=== PATIENT | female | born 1945 | race Caucasian/White ===

== ENCOUNTER 2018-02-09 11:00 | Inpatient (IN) | payer MEDICARE ==
[2018-02-13] MEDS ORDERED: Ketorolac Tromethamine 30 MG/ML VIAL ONE (07:08)
[2018-02-13] MEDS ORDERED: Fentanyl 250 MCG/5 ML VIAL ONE (07:09)
[2018-02-13] MEDS ORDERED: cefOXitin 2 GM, Syringe 1 ML in Sterile Water 10 ML SLOW IVP SCH (07:15)
[2018-02-13] MEDS ORDERED: Midazolam HCl 2 mg/2 ml Vial ONE (07:35)
[2018-02-13] MEDS ORDERED: Fentanyl 100 MCG/2 ML VIAL ONE (07:35)
[2018-02-13] MEDS ORDERED: Dexamethasone 4 mg/ml Vial ONE (07:36)
[2018-02-13] MEDS ORDERED: Lidocaine 2% w/Epinephrine 1:200K 20 ML VIAL ONE (08:10)
[2018-02-13] MEDS ORDERED: Bupivacaine/Epinephrine 0.25% 30 ML VIAL ONE (08:10)
[2018-02-13] MEDS ORDERED: Dexmedetomidine 200 MCG/2 ML VIAL ONE (08:26)
[2018-02-13] MEDS ORDERED: Ondansetron HCl/PF 4 MG/2 ML Vial ONE ×2 (08:26→16:19)
[2018-02-13] MEDS ORDERED: SUGAMMADEX SODIUM 500 MG/5 ML VIAL ONE (09:52)
[2018-02-13] MEDS ORDERED: cefOXitin 2 GM VIAL ONE (10:14)
[2018-02-13] MEDS ORDERED: PROVENTIL INHALER 6.7 G (200 INHALATIONS) INH PRN (11:39)
[2018-02-13] MEDS ORDERED: Promethazine HCl 25 MG/ML VIAL IM PRN ×2 (11:41→12:59)
[2018-02-13] MEDS ORDERED: Ondansetron HCl/PF 4 MG/2 ML Vial IVP PRN ×2 (11:41→12:59)
[2018-02-13] MEDS ORDERED: Promethazine HCl 25 MG/ML VIAL SLOW IVP PRN (11:41)
[2018-02-13] MEDS ORDERED: Morphine 4 MG/ML VIAL SLOW IVP PRN ×2 (12:59)
[2018-02-13] MEDS ORDERED: Acetaminophen 1,000 MG in Premix Bag 1 BAG IVPB SCH (12:59)
[2018-02-13] MEDS ORDERED: Ketorolac Tromethamine 30 MG/ML VIAL IVP SCH (12:59)
[2018-02-13 13:06] VITALS: BMI 27.8
[2018-02-13] MEDS ORDERED: cefOXitin 2 GM in Sodium Chloride 0.9% 100 ML IVPB SCH (14:00)
[2018-02-13] MEDS ORDERED: Famotidine 20 MG TAB PO SCH (14:15)
[2018-02-13] MEDS: D5 1/2 NS w/20 mEq KCL 1,000 ML IV SCH ×2 (14:21→22:06)
[2018-02-13] MEDS: Famotidine 20 MG TAB PO SCH ×2 (14:22→20:40)
[2018-02-13] MEDS: Famotidine 40 MG/4 ML VIAL SLOW IVP SCH ×2 (14:22→22:06)
[2018-02-13] MEDS: Ketorolac Tromethamine 30 MG/ML VIAL IVP SCH ×2 (14:23→20:37)
[2018-02-13] MEDS: Acetaminophen 1,000 MG in Premix Bag 1 BAG IVPB SCH ×2 (14:23→20:37)
[2018-02-13] MEDS ORDERED: Bupivacaine HCl 0.5%/Epinephrine 1:200,000/PF 30 ml Vial ONE (16:00)
[2018-02-13] MEDS ORDERED: PROPOFOL 200 MG/20 ML VIAL ONE (16:19)
[2018-02-13] MEDS ORDERED: PHENYLEPHRINE-NS 100 MCG/ML 10 ML SYRINGE ONE (16:19)
[2018-02-13] MEDS ORDERED: Hydrocortisone Sod Succ/PF 100 mg/2 ml Vial ONE (16:19)
[2018-02-13] MEDS ORDERED: Lidocaine 1% PF 5 ML VIAL ONE (16:19)
[2018-02-13] MEDS: cefOXitin 2 GM, Syringe 1 ML in Sterile Water 10 ML SLOW IVP SCH (18:18)
[2018-02-13] MEDS: Albuterol Sulfate 1.25 MG/3 ML NEB INH SCH (18:54)
[2018-02-13] MEDS: Mometasone/Formoterol 120 PUFF INHALER INH SCH (19:29)
[2018-02-13] MEDS: Enoxaparin Sodium 40 MG/0.4 ML SYRINGE SC SCH (20:39)
[2018-02-13] MEDS: Montelukast Sodium 10 mg Tablet PO SCH (20:40)
[2018-02-13] MEDS: hydrALAZINE 20 MG/ML VIAL SLOW IVP PRN (23:49)
[2018-02-14] MEDS: D5 1/2 NS w/20 mEq KCL 1,000 ML IV SCH ×3 (00:35→09:23)
[2018-02-14] MEDS: Ketorolac Tromethamine 30 MG/ML VIAL IVP SCH ×4 (01:33→20:25)
[2018-02-14] MEDS: Acetaminophen 1,000 MG in Premix Bag 1 BAG IVPB SCH ×2 (01:34→08:34)
[2018-02-14] MEDS: cefOXitin 2 GM, Syringe 1 ML in Sterile Water 10 ML SLOW IVP SCH (01:34)
[2018-02-14 04:34] LABS: #Lymphocytes 0.9 thou/uL (1.20-3.40); #Monocytes 1.6 thou/uL (0.11-0.59); #Neutrophils 16.8 thou/uL (1.40-6.50); %Basophils 0.1 % (0.0-1.0); %Eosinophils 0.2 % (0.0-10.0); %Lymphocytes 4.8 % (21.0-51.0); %Monocytes 8.4 % (0.0-10.0); %Neutrophils 86.7 % (42.0-75.0); Hemoglobin 12.6 g/dL (12.0-16.0); Mean Corpuscular HGB CONC 34.6 g/dL (32.0-36.0); Mean Corpuscular Hemoglobin 32.3 pg (27.0-31.0); Mean Corpuscular Volume 93.3 fl (81.0-99.0); Mean Platelet Volume 6.4 fL (7.4-10.4); Platelet Count 366 thou/uL (130-400); RBC Distribution Width 11.3 % (11.5-14.5); Red Blood Cell (RBC) Count 3.91 mill/uL (4.20-5.40); White Blood Cell (WBC) Count 19.4 thou/uL (4.8-10.8)
[2018-02-14 04:42] LABS: Anion Gap 12 mmol/L (10-20); BUN (Urea Nitrogen) 16 mg/dL (9.8-20.1); Calc. Creatinine Clearance 35 mL/min (70-130); Calcium 8.5 mg/dL (7.8-10.44); Carbon Dioxide 20 mmol/L (23-31); Chloride 106 mmol/L (98-107); Estimated GFR-MDRD 35; Glucose 169 mg/dL (83-110); Potassium 4.1 mmol/L (3.5-5.1); Sodium 134 mmol/L (136-145)
[2018-02-14] MEDS: hydrALAZINE 20 MG/ML VIAL SLOW IVP PRN (06:08)
[2018-02-14] MEDS: Albuterol Sulfate 1.25 MG/3 ML NEB INH SCH ×2 (06:21→19:46)
[2018-02-14] MEDS: Mometasone/Formoterol 120 PUFF INHALER INH SCH ×2 (06:23→19:44)
[2018-02-14] MEDS: FLUoxetine HCl 20 MG CAP PO SCH (08:35)
[2018-02-14] MEDS: Famotidine 40 MG/4 ML VIAL SLOW IVP SCH (08:35)
[2018-02-14] MEDS: Famotidine 20 MG TAB PO SCH (08:35)
[2018-02-14] MEDS: Losartan 25 MG TAB PO SCH (08:35)
[2018-02-14] MEDS ORDERED: HYDROcodone/Acetaminophen 7.5/325 mg Tablet PO PRN ×2 (08:52)
--- NOTE | 2018-02-14 18:54 | CON ---
DATE OF CONSULTATION: 02/14/2018 HISTORY OF PRESENT ILLNESS: She is doing well. She has no complaints. She presented for rectal prolapse surgery, and I was asked to follow along with her because of her severe asthma. She has no complaints. She is for all practical purposes, steroid dependent. She denies asthma or wheezing at this time. She actually walked today. PAST MEDICAL HISTORY: Remarkable for, 1. Asthma. 2. Hypertension. 3. History of depression. 4. History of salivary gland tumor. 5. History of hysterectomy. 6. Tubal ligation. 7. History of lumbar spine surgery. 8. History of admission to the ICU in 2014 with respiratory insufficiency associated with asthma and pain. 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 It was felt that she might have meningitis with that. Surprisingly, she recovered from that. 9. History of spinal injections for pain. 10. History of hearing loss. 11. History of having one child. I took care of her son many years ago, Joaquin Hoff, who with complications of muscular dystrophy in his 30s. He actually was living in an iron lung until he was in his late mid 20s. She has a [id number] history of smoking, but she had not smoked in over 25 years. She does drink. She works at [employer] [address] near [facility]. SOCIAL HISTORY: FAMILY HISTORY: REVIEW OF SYSTEMS: 10 point system negative. She denies having perirectal significant discomfort at this time. Remainder of review of systems, 10 points , is negative. PHYSICAL EXAMINATION: GENERAL: She is in no distress. She is lying flat in bed. VITAL SIGNS: She is afebrile. Heart rate is 87, blood pressure 155/88, respiratory rate is 20. HEENT: Pupils are equal. Sclerae are anicteric. NECK: Supple. No lymphadenopathy. LUNGS: Clear. HEART: Regular rhythm. S1 and S2 are normal. ABDOMEN: Soft and nontender. EXTREMITIES: Without clubbing, cyanosis, or edema. White count is 19.4, hemoglobin 12.6, platelets 366. Sodium 134, potassium 4.1, chloride 106, bicarb 20, BUN 16, creatinine 1.46. Baseline creatinine is about 1.1. IMPRESSION: 1. Chronic persistent asthma with intermittent chronic steroid use. For all practical purposes, she is steroid dependent. She is clinically stable. 2. Status post surgical repair of rectal prolapse. 3. Mild renal dysfunction. I suspect this will improve with hydration and increased p.o. intake. I will be happy to follow with the other physicians caring for her now. Fortunately, she is stable at this time. This is a 50-minute consult, greater than 50% of the time was spent coordinating care on the unit. ZACHERY
[2018-02-14] MEDS: Montelukast Sodium 10 mg Tablet PO SCH (20:24)
[2018-02-14] MEDS: Enoxaparin Sodium 40 MG/0.4 ML SYRINGE SC SCH (20:25)
[2018-02-15] MEDS: D5 1/2 NS w/20 mEq KCL 1,000 ML IV SCH (02:57)
[2018-02-15] MEDS: Ketorolac Tromethamine 30 MG/ML VIAL IVP SCH ×4 (02:58→21:10)
--- NOTE | 2018-02-15 04:42 | OP ---
DATE OF OPERATION: 02/13/2018 PREOPERATIVE DIAGNOSIS: Rectal prolapse. POSTOPERATIVE DIAGNOSIS: Rectal prolapse with multiloculated right ovarian cyst. OPERATION PERFORMED: Hand-assisted laparoscopic sigmoid colectomy with rectopexy, right oophorectomy . SURGEON: Ky Becerra M.D. ANESTHESIA: General endotracheal. INDICATIONS: The patient is a 72-year-old white female. She has steroid dependent COPD. She has re ctal prolapse, which sticks out 8-9 cm. It is easily reducible. She is taken to the operating room at this time for colectomy and rectopexy to treat her rectal prolapse. DESCRIPTION OF OPERATION: Informed consent was obtained. The patient was taken to the operating sourav m where general endotracheal anesthesia obtained with the patient in supine position. Abdomen was pr epped with ChloraPrep and draped in sterile fashion. A Golden catheter was placed. Local anesthetic was infiltrated and 5-mm supraumbilical incision was created through which a Veress needle was passed into the peritoneal cavity and pneumoperitoneum established using carbon dioxide up to a pressure of 15 mmHg. A 5-mm trocar port was passed through this same incision and laparoscopic camera was passe d through this port. Under direct vision, a 12-mm right lower quadrant port was placed. A site was selected for a colon extraction and an 8-cm oblique left lower quadrant incision was created. Dissec tion was carried through skin and subcutaneous tissue, and muscle splitting was used to gain entry in to the abdominal cavity. The Cedric wound retractor was placed followed by the GelPort. Attention was turned first to the pelvis. It was difficult to discern the pelvic anatomy. There was a dominant mass to the right side of the pelvis, difficult to tell what this was. Therefore, I star marcus my dissection on the left colon. The white line of Toldt was incised up to the level of the sple bethany flexure and the colon was medialized using blunt dissection. Dissection was then carried down to freeing the sigmoid colon and turned towards the pelvis. I first freed scar tissue on the left late ral aspect of the rectum and then as I continued dissection down the pelvis. I eventually recognized that the mass I was feeling was a large ovarian cystic structure. I opened a couple of these locula tions, aspirating clear cystic fluid, but there was still a mass effect in this location. I therefor e mobilized the entire ovary and performed an oophorectomy, taking down the blood supply and all adhe sions with the LigaSure and the specimen was passed off the field. I then mobilized the remainder of the sigmoid colon and the rectum out of the pelvis. This was a hilaria y redundant colon that traversed up and down within the pelvis. Once all adhesions were mobilized, I was able to identify down into the depth of the pelvis and I mobilized the distal rectum anteriorly on each lateral aspect. I incised the peritoneum on each side of the rectum extending down to the pe lvis, which gave me excellent rectal mobilization, to be able to retract the rectum up into the abdom en. I identified the area of the rectum that would reach up to the sacral promontory. I then dissec marcus the mesenteric defect, a cm or 2 proximal to this and divided the upper rectum with a single fire of the blue Henagar stapler. The mesentery was taken down in an ascending fashion proximally. As I had mobilize the entire sigmoid colon, identified a segment of the descending colon that would easil y reach down into the pelvis. This was marked with the LigaSure device and the colon was delivered e xtracorporeally through the wound retractor. The colon was cleared at the level that had been marked. The remaining mesentery was taken down at t hat level as well. The area was then toweled off with sterile towels and segregated instruments were utilized. A colotomy was created and was placed within the colotomy. It was dilated with EEA sizers. I selected the 29-mm stapler and the anvil was obtained and passed through the colotomy sev eral centimeters proximally where it was brought out antimesenteric. The colon was then divided with a final firing of the Henagar stapler just proximal to the colotomy and the specimen was passed off the field. All segregated instruments were passed off the field and gloves were changed. The post of the anvil was cleansed with Betadine gauze and a pursestring suture of 3-[address] aced around the base of the anvil. The segment of colon was dropped down into the abdomen and attent ion was turned to the pelvis. The EEA sizers were passed through the anus up to the staple line. Th e 29-mm EEA stapler was then passed up to the staple line. The spike was brought out anterior to the staple line and it was mated to the proximal colon anvil. The two segments were approximated and an astomosed by firing the stapler. Staple was removed and the donuts were inspected and found to be in tact. The anastomosis was checked to make sure it was airtight by insufflating the air while it was under water and there was no evidence of an air leak. All irrigant was aspirated. The fascia at the 12-mm port site was closed with 0 Vicryl suture using a GraNee needle. All ports and instruments removed under direct vision. The Cedric wound retractor was removed. The laparoscopic equipment was all removed from the field and the abdominal wall was wa shed with saline. Gowns and gloves were changed and the closing tray was utilized hereafter. The posterior fascia was closed with a running suture of #1 PDS after sterile towels had been placed. The wound was then irri gated with several hundred mL of saline. The anterior fascia was then also closed with #1 PDS. The wound was again irrigated. Finally, the wound was closed with interrupted sutures of 3-0 Vicryl to a pproximate Madan's fascia, and 4-0 Monocryl subcuticular suture to approximate the skin edges. The remaining incisions were closed with 4-0 Monocryl subcuticular suture. Dermabond was placed external ly to all 3 incision sites. There were no complications. Blood loss was negligible. The patient to lerated the procedure well and was taken to recovery room in stable condition.
[2018-02-15 05:32] LABS: #Eosinphils 0.1 thou/uL (0.0-0.7); #Lymphocytes 2.8 thou/uL (1.20-3.40); #Monocytes 1.5 thou/uL (0.11-0.59); #Neutrophils 10.8 thou/uL (1.40-6.50); %Basophils 0.1 % (0.0-1.0); %Eosinophils 0.5 % (0.0-10.0); %Lymphocytes 18.4 % (21.0-51.0); %Monocytes 9.8 % (0.0-10.0); %Neutrophils 71.2 % (42.0-75.0); Hemoglobin 13.5 g/dL (12.0-16.0); Mean Corpuscular HGB CONC 32.7 g/dL (32.0-36.0); Mean Corpuscular Hemoglobin 30.9 pg (27.0-31.0); Mean Corpuscular Volume 94.6 fl (81.0-99.0); Mean Platelet Volume 6.3 fL (7.4-10.4); Platelet Count 393 thou/uL (130-400); RBC Distribution Width 11.5 % (11.5-14.5); Red Blood Cell (RBC) Count 4.37 mill/uL (4.20-5.40); White Blood Cell (WBC) Count 15.2 thou/uL (4.8-10.8)
[2018-02-15 05:34] LABS: Anion Gap 10 mmol/L (10-20); BUN (Urea Nitrogen) 13 mg/dL (9.8-20.1); Calc. Creatinine Clearance 44 mL/min (70-130); Calcium 9.1 mg/dL (7.8-10.44); Carbon Dioxide 24 mmol/L (23-31); Chloride 109 mmol/L (98-107); Estimated GFR-MDRD 46; Glucose 112 mg/dL (83-110); Potassium 3.7 mmol/L (3.5-5.1); Sodium 139 mmol/L (136-145)
[2018-02-15] MEDS: Albuterol Sulfate 1.25 MG/3 ML NEB INH SCH ×2 (06:46→19:11)
[2018-02-15] MEDS: Mometasone/Formoterol 120 PUFF INHALER INH SCH ×2 (06:48→19:12)
[2018-02-15] MEDS ORDERED: predniSONE 20 MG TAB PO SCH (09:00)
[2018-02-15] MEDS: FLUoxetine HCl 20 MG CAP PO SCH (09:06)
[2018-02-15] MEDS: Famotidine 20 MG TAB PO SCH (09:06)
[2018-02-15] MEDS: predniSONE 20 MG TAB PO SCH (09:06)
[2018-02-15] MEDS: Losartan 25 MG TAB PO SCH (09:07)
--- NOTE | 2018-02-15 09:32 | PRG ---
DATE OF SERVICE: 02/15/2018 Ms. Hoff is postoperative day #2 from sigmoid colectomy, rectopexy and oophorectomy for rectal prolap se. She seems to continue to do well. She denies abdominal pain. She notes she has some back pain. She believes it is from lying in bed. She started clear liquids. She denies belching. She has ayala d several loose bowel movements and has passed flatus. She is ambulating. She is urinating as well. PHYSICAL EXAMINATION: VITAL SIGNS: She is afebrile, pulse 82, blood pressure 151/90. She is breathing comfortably on room air. LUNGS: Clear to auscultation without wheezing. ABDOMEN: Mildly protuberant (normal for her). Incisions are all healing nicely without evidence of infection or significant tenderness. She does have bowel sounds audible and no significant tendernes s to deep palpation. LABORATORY STUDIES: Her white blood cell count has dropped from 19 down to 15. Hemoglobin stable at 13.5. Chemistry profile reveals minor electrolyte abnormalities. Her creatinine has dropped from 1 .4 yesterday to 1.1 today. Her glucose levels have been essentially normal. ASSESSMENT: She continues to make good progress. Since she is a steroid dependent chronic obstructi ve pulmonary disease patient, I will err on the side of caution and observe her until tomorrow, even though she has already got return of bowel function. Her fluids will be discontinued. I will advanc e her diet. If she appears to be stable tomorrow, then I would plan on discharging home at that time .
--- NOTE | 2018-02-15 15:10 | PRG ---
DATE OF SERVICE: 02/15/2018 SUBJECTIVE: Ms. Hoff says she is feeling great. She did ambulate in the bowers without difficulty. OBJECTIVE: VITAL SIGNS: She is afebrile, heart rate is 82, respiratory rate 16, blood pressure 151/90, oximetry is 94% on room air. LUNGS: Completely clear. HEART: Regular rhythm. ABDOMEN: Nontender. LABORATORY DATA: Lab today is unremarkable. Creatinine is down to 1.17. Hemoglobin is stable at 13 .5, platelets are normal. IMPRESSION: Status post-surgical repair of rectal prolapse. [facility] Her asthma is stable. She can follow up with me within a month.
[2018-02-15] MEDS: Enoxaparin Sodium 40 MG/0.4 ML SYRINGE SC SCH (21:09)
[2018-02-15] MEDS: Montelukast Sodium 10 mg Tablet PO SCH (21:09)
[2018-02-16] MEDS: Ketorolac Tromethamine 30 MG/ML VIAL IVP SCH ×3 (03:07→14:03)
[2018-02-16] MEDS: Albuterol Sulfate 1.25 MG/3 ML NEB INH SCH (07:56)
[2018-02-16] MEDS: Mometasone/Formoterol 120 PUFF INHALER INH SCH (07:59)
[2018-02-16] MEDS: Losartan 25 MG TAB PO SCH (08:20)
[2018-02-16] MEDS: FLUoxetine HCl 20 MG CAP PO SCH (08:21)
[2018-02-16] MEDS: Famotidine 20 MG TAB PO SCH (08:21)
[2018-02-16] MEDS: predniSONE 20 MG TAB PO SCH (08:21)
[2018-02-16 11:50] VITALS: BP 110/61; TEMP 98.2
--- NOTE | 2018-02-17 00:26 | DIS ---
DATE OF ADMISSION: 02/13/2018 DATE OF DISCHARGE: 02/16/2018 ADMISSION DIAGNOSIS: Rectal prolapse. DISCHARGE DIAGNOSIS: Rectal prolapse. OPERATION/PROCEDURE PERFORMED: Laparoscopic sigmoid colectomy with rectopexy and a right oophorectom y. 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 She has a relatively long history of rectal prolapse. She is completely incontinent. She presen ts for discussion regarding surgical treatment of this and I recommended sigmoid colectomy with recto pexy. She has seen her painter structural steel, Dr. Hernandez, who has cleared her for surgery. HOSPITAL COURSE: She presented for surgery on the day of her admission. She underwent outpatient micah wel prep. She underwent uneventful surgery on the day of presentation. She was stable intraoperativ cheri and was managed postoperatively on the surgical floor. She was seen in consultation by Dr. Hernandez , who assist with pulmonary management. She actually never had any significant pulmonary problems af ter surgery. She tolerated her clear liquid diet immediately and had resumption of bowel function by early postoperative day 2. Although she was afebrile with normal vital signs throughout, I decided to observe her in the hospital for one additional day in light of her significant medical problems. Today is postoperative day #3 for her. She is having regular bowel function. She notes she is still incontinent (which is of course anticipated). She denies any significant pain. Her abdominal exam is benign. Examination of her rectum reveals no evidence of rectal prolapse. In summary, she appear s to be doing well following the surgery. She is discharged home today to resume all of her normal h ome medications. She has required no pain medication for the past 12 hours and therefore will be dis charged home with no narcotic medications. She is instructed to use Advil or Tylenol as necessary fo r mild discomfort. I will see her back in 2 weeks for routine followup and she is instructed to call sooner if she has any problems.
== END 2018-02-16 16:20 | disposition home or self-care (01) | DRG 331 ==
LOC: SURG A 02-13 06:13 → EDSTATUS 02-13 11:00 → SURG A 02-13 12:31
PROVIDERS: ADMIT Specialist; ATTEND Specialist
PROC: 0DTN0ZZ Resection of Sigmoid Colon, Open Approach (ICD-10-PCS; principal; 2018-02-13)
PROC: 0UT00ZZ Resection of Right Ovary, Open Approach (ICD-10-PCS; 2018-02-13)
PROC: 0DQP0ZZ Repair Rectum, Open Approach (ICD-10-PCS; 2018-02-13)
DX: K62.3 Rectal prolapse (principal); N83.201 Unspecified ovarian cyst, right side; J44.9 Chronic obstructive pulmonary disease, unspecified; Z79.52 Long term (current) use of systemic steroids; I10 Essential (primary) hypertension; F32.9 Major depressive disorder, single episode, unspecified; Z90.710 Acquired absence of both cervix and uterus; Z98.51 Tubal ligation status; Z87.891 Personal history of nicotine dependence; N28.9 Disorder of kidney and ureter, unspecified; J45.50 Severe persistent asthma, uncomplicated
CPT/HCPCS: 36415; 36416; 80048; 85025; 88307; 94640; A4216; J0131; J0360; J0670; J0694; J1100; J1650; J1720; J1885; J2001; J2250; J2270; J2405; J2550; J2704; J3010; J7506

== ENCOUNTER 2018-02-09 11:11 | Outpatient (CLI) | payer MEDICARE ==
[2018-02-09 11:34] VITALS: BMI 27.2
[2018-02-09 12:02] LABS: #Eosinphils 0.3 thou/uL (0.0-0.7); #Lymphocytes 2.5 thou/uL (1.20-3.40); #Monocytes 1.1 thou/uL (0.11-0.59); #Neutrophils 9.7 thou/uL (1.40-6.50); %Basophils 0.3 % (0.0-1.0); %Eosinophils 2.4 % (0.0-10.0); %Monocytes 8.1 % (0.0-10.0); %Neutrophils 71.2 % (42.0-75.0); Hemoglobin 12.7 g/dL (12.0-16.0); Mean Corpuscular HGB CONC 33.7 g/dL (32.0-36.0); Mean Corpuscular Hemoglobin 31.5 pg (27.0-31.0); Mean Corpuscular Volume 93.7 fl (81.0-99.0); Mean Platelet Volume 5.9 fL (7.4-10.4); Platelet Count 342 thou/uL (130-400); RBC Distribution Width 11.3 % (11.5-14.5); Red Blood Cell (RBC) Count 4.02 mill/uL (4.20-5.40); White Blood Cell (WBC) Count 13.6 thou/uL (4.8-10.8)
[2018-02-09 12:22] LABS: Anion Gap 13 mmol/L (10-20); BUN (Urea Nitrogen) 22 mg/dL (9.8-20.1); Calc. Creatinine Clearance 43 mL/min (70-130); Calcium 8.6 mg/dL (7.8-10.44); Carbon Dioxide 23 mmol/L (23-31); Chloride 108 mmol/L (98-107); Estimated GFR-MDRD 46; Glucose 79 mg/dL (83-110); Potassium 3.4 mmol/L (3.5-5.1); Sodium 141 mmol/L (136-145)
== END 2018-02-09 11:12 | disposition home or self-care (01) ==
LOC: LABBT 11:11
PROVIDERS: ATTEND Specialist
DX: Z01.818 Encounter for other preprocedural examination (principal); K62.3 Rectal prolapse
CPT/HCPCS: 80048; 83036; 85025; 87081

== ENCOUNTER 2018-03-27 10:14 | Outpatient (CLI) | payer MEDICARE | END 2018-03-27 10:15 | disposition home or self-care (01) | LOC: BICRAD 10:14 | PROVIDERS: ATTEND Internal Medicine Critical Care Medicine | DX: R06.00 Dyspnea, unspecified (principal); J98.11 Atelectasis; I70.0 Atherosclerosis of aorta; I77.819 Aortic ectasia, unspecified site | CPT/HCPCS: 71046 ==

== ENCOUNTER 2018-08-22 10:13 | Outpatient (CLI) | payer MEDICARE ==
--- NOTE | 2018-08-22 11:00 | RAD ---
TWO VIEWS CHEST: Date: 08-22-18 Provided Clinical History: Dyspnea. FINDINGS: Comparison is made with a study dated 03-27-18. Cardiac and mediastinal silhouette is unchanged in appearance. Vertebroplasty changes are again seen. Compression deformities of the lower thoracic spine are again noted. Atherosclerosis is seen. Interv al decreased in conspicuity of the linear and parenchymal opacity involving the left midlung zone. So mewhat nodular density is seen on the frontal view at the right lung base, not definitely seen on yolis or. No pleural fluid or pneumothorax apparent. IMPRESSION: Nodular density of the right lung base, which could reflect superimposition of normal structures. Con netezza developer short term radiographic follow up or chest CT. Code T
== END 2018-08-22 10:14 | disposition home or self-care (01) ==
LOC: RAD 10:13
PROVIDERS: ATTEND Internal Medicine Critical Care Medicine
DX: R06.00 Dyspnea, unspecified (principal); R91.8 Other nonspecific abnormal finding of lung field
CPT/HCPCS: 71046

== ENCOUNTER 2018-08-24 09:50 | Inpatient (IN) | payer MEDICARE ==
[2018-08-24 10:40] LABS: #Lymphocytes 0.6 thou/uL (1.20-3.40); #Monocytes 0.7 thou/uL (0.11-0.59); #Neutrophils 16.2 thou/uL (1.40-6.50); %Eosinophils 0.1 % (0.0-10.0); %Lymphocytes 3.5 % (21.0-51.0); %Monocytes 3.8 % (0.0-10.0); %Neutrophils 92.7 % (42.0-75.0); Hemoglobin 13.7 g/dL (12.0-16.0); Mean Corpuscular HGB CONC 32.7 g/dL (32.0-36.0); Mean Corpuscular Hemoglobin 30.4 pg (27.0-31.0); Mean Corpuscular Volume 93.1 fL (78.0-98.0); Mean Platelet Volume 6.3 fL (7.4-10.4); Platelet Count 383 thou/uL (130-400); RBC Distribution Width 11.6 % (11.5-14.5); Red Blood Cell (RBC) Count 4.51 mill/uL (4.20-5.40); White Blood Cell (WBC) Count 17.5 thou/uL (4.8-10.8)
--- NOTE | 2018-08-24 10:51 | RAD ---
PORTABLE CHEST ONE VIEW: History: 73-year-old female with history of shortness of breath. Comparison: 08-22-18 FINDINGS: Monitor leads overlie the chest. Borderline heart size. Multiple status post vertebroplasty changes a re noted. No confluent pneumonia, overt edema, or pleural effusion. IMPRESSION: Stable chest. POS: RRE
[2018-08-24 10:57] LABS: ALT (SGPT) 19 U/L (8-55); AST (SGOT) 18 U/L (5-34); Albumin 3.9 g/dL (3.4-4.8); Alkaline Phosphatase 79 U/L (40-150); Anion Gap 15 mmol/L (10-20); BUN (Urea Nitrogen) 24 mg/dL (9.8-20.1); Bilirubin, Total 0.6 mg/dL (0.2-1.2); Calc. Creatinine Clearance 0 mL/min (70-130); Calcium 9.6 mg/dL (7.8-10.44); Carbon Dioxide 23 mmol/L (23-31); Chloride 104 mmol/L (98-107); Estimated GFR-MDRD 40; Globulin 3.1 g/dL (2.4-3.5); Glucose 221 mg/dL (83-110); Potassium 3.5 mmol/L (3.5-5.1); Sodium 138 mmol/L (136-145)
[2018-08-24] MEDS ORDERED: predniSONE 20 MG TAB ONE (11:01)
[2018-08-24] MEDS ORDERED: Cefepime 2 GM VIAL ONE (11:01)
[2018-08-24] MEDS ORDERED: Cefepime 2 GM in Sodium Chloride 0.9% 100 ML IVPB ONE (11:15)
[2018-08-24] MEDS ORDERED: Azithromycin 500 MG in Sodium Chloride 0.9% 250 ML 250 ML IVPB ONE (11:15)
[2018-08-24] MEDS ORDERED: Ipratropium Bromide 2.5 ml Neb ONE (11:58)
[2018-08-24] MEDS ORDERED: Albuterol Sulfate 2.5 mg/3 ml Neb ONE (11:59)
[2018-08-24 12:07] LABS: Bilirubin Negative (Negative); Blood, Urine Negative (Negative); Clarity CLEAR (Clear); Glucose, Urine (Dipstick) Negative (Negative); Leukocyte Negative (Negative); Nitrite Negative (Negative); Protein, Urine (Dipstick) Trace mg/dL (Neg-Trace); Specific Gravity, Urine 1.009 (1.002-1.036); Urobilinogen 0.2 mg/dL (0.2-1.0); pH, Urine 6.5 (5.0-9.0)
[2018-08-24] MEDS ORDERED: Magnesium 2 GM/50 ML BAG (IN WATER) ONE (12:07)
[2018-08-24 13:09] LABS: Troponin I 0.011 ng/mL (< 0.028)
[2018-08-24 14:14] VITALS: BMI 23.1
[2018-08-24 14:40] LABS: Lactic Acid 1.9 mmol/L (0.5-2.2)
[2018-08-24] MEDS ORDERED: Albuterol Sulfate 2.5 mg/3 ml Neb NEB PRN (16:42)
--- NOTE | 2018-08-24 20:02 | CON ---
DATE OF CONSULTATION: 08/24/2018 SERVICE: Pulmonary Medicine. REASON FOR CONSULTATION: Respiratory failure. HISTORY OF PRESENT ILLNESS: The patient is a very pleasant 73-year-old white female with past medical history significant for asthma. She has not had a severe exacerbation since 2014. Either way, for the last week and a half or so , she has had increasing shortness of breath and wheezing. She saw Dr. Hernandez on Monday and she was placed on a tapering dose of prednisone. She made absolutely no improvement. She called back in the clinic today suggesting that she was even worse and we redirected her to the Emergency Department. In the Emergency Department, she got multiple nebulized medications and magnesium. She did not have any significant improvement and ultimately required being placed on BiPAP. After this occurred, her shortness of breath actually improved fairly dramatically. She can talk in full sentences while wearing the BiPAP. She denies having any recent fevers or chills. She is coughing up yellow sputum. She has been using her medications as directed by Dr. Hernandez. She denies any nausea, vomiting or diarrhea. She does not have any hot, red, swollen joints, rashes, or arthralgias. She denies having any malaise or myalgia. Otherwise, she is in her usual state of health. PAST MEDICAL HISTORY: 1. Asthma, severe. 2. Hypertension. 3. Major depressive disorder. 4. Hearing loss. 5. Osteoporosis. 6. History of spinal infection. 7. Rectal prolapse. PAST SURGICAL HISTORY: 1. Hysterectomy. 2. TBL. 3. Colonoscopy. 4. Injections for back pain. 5. Hand-assisted laparoscopic sigmoid colectomy with rectopexy and intraoperative right oophorectomy. FAMILY HISTORY: Noncontributory. SOCIAL HISTORY: Negative for alcohol, tobacco or illicit drug use. She has no exposure to chemicals, dust asbestos or tuberculosis. ALLERGIES: No known drug allergies. MEDICATIONS: List of inpatient medications were reviewed. Multiple small updates were made. REVIEW OF SYSTEMS: General, head, ears, eyes, nose, throat, cardiovascular, respiratory, GI, , musculoskeletal, neurologic and skin is negative except as in the HPI. PHYSICAL EXAMINATION: VITAL SIGNS: Afebrile, pulse 110, blood pressure 158/89, respirations 24, saturation 94% on BiPAP. This is 23% FiO2. HEENT: Normocephalic, atraumatic. Sclerae are white, conjunctivae pink. Oral mucosa is moist without lesions. LUNGS: Decent air entry. There is a prolonged expiratory phase with polyphonic wheezing. I do not appreciate rhonchi or crackles. HEART: Tachycardic, regular. ABDOMEN: Soft, nontender, nondistended. Bowel sounds are positive. MUSCULOSKELETAL: No cyanosis or clubbing. There is no pitting in the bilateral lower extremities. NEUROLOGIC: Grossly nonfocal. LABORATORY DATA: WBC 17.5, hemoglobin 13.7, platelets 383,000. Creatinine 1.30 , which is slightly above baseline. Basic metabolic profile and liver function studies are otherwise unremarkable. Troponin 0.01. Lactate was 2.3 and improved to 1.9. Urinalysis is unremarkable. Influenza A and B are negative. IMAGING: Chest x-ray demonstrates flat and bilateral diaphragm. Generous cardiac silhouette is present on this portable film. She has multilevel vertebroplasty present. No overt consolidating lung changes or effusions are identified. ASSESSMENT: 1. Acute hypoxic and hypercapnic respiratory failure. 2. Asthma with acute exacerbation. 3. Systemic inflammatory response syndrome. DISCUSSION AND PLAN: We will leave the patient on BiPAP which I titrated at bedside. We will start giving her breaks for 15-30 minutes and increase as tolerated. She is currently on 10/4 and talking in full sentences and has minimal respiratory distress. As such, I will leave her on these settings. I will wean away oxygen as much as tolerated. Over the next 24 hours, we will schedule steroids, nebulized medications, and antibiotics. When she is able to go in the evening off of her BiPAP, we will consider transitioning her out of the ICU to the medical unit. Pulmonary Critical Care will continue to follow closely during this hospital stay. I will watch her through the weekend, but my suspicion is she will still be here on Monday and at that time, Dr. Hernandez will resume care. Critical care time: 30 minutes. ZACHERY
--- NOTE | 2018-08-24 20:11 | HP ---
DATE OF ADMISSION: 08/24/2018 PRIMARY CARE PHYSICIAN: Michele Ford M.D. CHIEF COMPLAINT: Dyspnea. HISTORY OF PRESENT ILLNESS: This is a 73-year-old female patient of Dr. Koenig who came to the emergency room with difficulty breathing. She is a severe asthmatic/COPD patient of Dr. Kevin. She has had multiple nebulizer treatments at home, more given in the ER and was not improving and failed CPAP, had to be put on BiPAP for admission and is put here in the ICU. Consultation has been made with Dr. Eason who is director of contracts for Dr. Hernandez. Recently, she was seen by Dr. Ford and Dr. Hernandez over the last several weeks for worsening of her asthma and she has been on 40 mg prednisone dose for the last week, still was not helping. She denies any tingling of hands or feet. She denies any nausea or vomiting. She denies any changes in bowels or bladder habits. She denies any hemoptysis or hematemesis. PAST MEDICAL HISTORY: Positive for severe steroid dependent asthma, hypertension, hearing loss, history of salivary gland tumor. She also had a remote hysterectomy and a tubal ligation. She had an ICU admission in 2014 with respiratory associations pursuant to a paraspinal abscess and osteomyelitis. She was followed by Dr. Welsh during that stay here as well as postoperatively. She also has spinal injections with Dr. Zarate. PAST SURGICAL HISTORY: She this last summer underwent a rectal prolapse repair with Dr. Becerra where she underwent a laparoscopic sigmoid colectomy and rectopexy as well as a right oophorectomy. SOCIAL HISTORY: She has a 52-yjit-agal smoking history. She stopped in 1992. She is retired from previous work, but currently works at the [employer] on [address] to [facility]. FAMILY HISTORY: Mother and father had hypertension. She had a son who in his 30s from muscular dystrophy. REVIEW OF SYSTEMS: The patient denies any fever or chills. Denies any changes in vision, chewing or swallowing. No cough, no hemoptysis, no nausea or vomiting, no hematemesis, no changes in bowel or bladder habits. Denies any paresis or paresthesias. Denies any dysuria or hematuria. Denies any suicidal or homicidal ideation. She denies any recent exposures to airborne toxins or fumes. CURRENT MEDICATIONS: Aspirin 81 mg, diltiazem 120 mg twice a day, prednisone 40 mg once a day. She was on an increase and was scheduled to be a taper off. Typically, she is on 10 mg a day. She is also on losartan 100 mg daily. She is on fluoxetine 20 mg daily. She is on Singulair 10 mg daily. She is also on Rollingstone 10/325 one every 8 hours p.r.n. for pain. She is also on diazepam 5 mg p.r.n. b.i.d. PHYSICAL EXAMINATION: VITAL SIGNS: She is afebrile at temperature 98.4, pulse 113, respirations 24-29 , saturating 94% on BiPAP, BP most recently is 158/89. GENERAL: She has a BiPAP mask on. Appears to be comfortable. Can talk with it on in short word bursts. She is awake and alert, in no acute distress. NECK: Supple, no JVD, no bruits, no thyromegaly. LUNGS: Diffusely wheezing and distant sounds. No evidence of consolidation as the sound are consistent throughout and negative on percussion. HEART: S1, S2. No rubs, murmurs or gallops. ABDOMEN: Soft, nontender, nondistended. No palpable masses, no hepatosplenomegaly. Bowel sounds are hypoactive. GENITOURINARY: Deferred. EXTREMITIES: Show good palpable pulses in all 4 extremities. She is relatively thin. NEUROLOGIC: She is alert and oriented x4. Cranial nerves II-XII are equal and symmetrical. DTRs are 2+ and equal. LABORATORY AND X-RAY FINDINGS: Her white count is elevated at 17,500, hemoglobin is 13.7, hematocrit is 42, platelets of 383,000, neutrophils elevated at 92,000, lymphocytes decreased at 3.5, no bands are noted and eosinophils are at 0.1. On chemistry, sodium is 138, potassium 3.5, chloride 104, bicarbonate 23, BUN is 24, creatinine is 1.3, glucose 221, AST is 18, ALT is 19. Her urine is negative. Her chest x-ray done shows no pneumonia. No pleural effusions. Barrel chested. ASSESSMENT: Severe asthma/chronic obstructive pulmonary disease exacerbation. PLAN: ICU admission. Continue on BiPAP as per orders from Dr. Eason from Pulmonology. We will continue home meds and we will follow through [facility] admission. [facility]
[2018-08-24] MEDS: guaiFENesin ER 600 MG TAB PO SCH (20:55)
[2018-08-24] MEDS: Cefdinir 300 MG CAP PO SCH (20:55)
[2018-08-24] MEDS: Montelukast Sodium 10 mg Tablet PO SCH (20:55)
[2018-08-25 03:41] LABS: #Lymphocytes 1.3 thou/uL (1.20-3.40); #Monocytes 1.3 thou/uL (0.11-0.59); #Neutrophils 15.1 thou/uL (1.40-6.50); %Basophils 0.1 % (0.0-1.0); %Eosinophils 0.1 % (0.0-10.0); %Lymphocytes 7.3 % (21.0-51.0); %Monocytes 7.5 % (0.0-10.0); Hemoglobin 11.7 g/dL (12.0-16.0); Mean Corpuscular HGB CONC 33.4 g/dL (32.0-36.0); Mean Corpuscular Hemoglobin 31.2 pg (27.0-31.0); Mean Corpuscular Volume 93.3 fL (78.0-98.0); Mean Platelet Volume 5.9 fL (7.4-10.4); Platelet Count 342 thou/uL (130-400); RBC Distribution Width 11.6 % (11.5-14.5); Red Blood Cell (RBC) Count 3.76 mill/uL (4.20-5.40); White Blood Cell (WBC) Count 17.7 thou/uL (4.8-10.8)
[2018-08-25 04:00] LABS: Anion Gap 9 mmol/L (10-20); BUN (Urea Nitrogen) 19 mg/dL (9.8-20.1); Calc. Creatinine Clearance 52 mL/min (70-130); Calcium 8.9 mg/dL (7.8-10.44); Carbon Dioxide 23 mmol/L (23-31); Chloride 112 mmol/L (98-107); Estimated GFR-MDRD 58; Glucose 117 mg/dL (83-110); Magnesium 2.5 mg/dL (1.6-2.6); Phosphorus 3.5 mg/dL (2.3-4.7); Potassium 3.6 mmol/L (3.5-5.1); Sodium 140 mmol/L (136-145)
[2018-08-25] MEDS: Cefdinir 300 MG CAP PO SCH ×2 (09:41→21:06)
[2018-08-25] MEDS: Azithromycin 250 MG TAB PO SCH (09:43)
[2018-08-25] MEDS: guaiFENesin ER 600 MG TAB PO SCH ×2 (09:49→21:06)
[2018-08-25] MEDS: predniSONE 20 MG TAB PO SCH (09:49)
[2018-08-25] MEDS: FLUoxetine HCl 20 MG CAP PO SCH (09:50)
[2018-08-25] MEDS ORDERED: Losartan 25 MG TAB PO SCH (13:00)
--- NOTE | 2018-08-25 13:08 | PRG ---
DATE OF SERVICE: 08/25/2018 SERVICE: Pulmonary Medicine. INTERVAL HISTORY: The patient is doing great from a respiratory standpoint. She is actually breathing much better today. She used her BiPAP last night. That being said, she has been on a holiday for the last 5 hours, and she is still doing well. She is breathing comfortably and talking in full sentences. PHYSICAL EXAMINATION: VITAL SIGNS: Afebrile, pulse 94, blood pressure 160/102, respirations 22, saturation 94% on 3 liters nasal cannula. GENERAL: The patient is awake and alert, in no apparent distress. LUNGS: Excellent air entry. There is a prolonged expiratory phase with both wheezing and crackles present. Rhonchi clear with cough today. HEART: Normal rate, regular. ABDOMEN: Soft, nontender, nondistended. Bowel sounds are positive. MUSCULOSKELETAL: No cyanosis or clubbing. There is no pitting in the bilateral lower extremities. NEUROLOGIC: Grossly nonfocal. LABORATORY DATA: WBC 17.7, hemoglobin 11.7, platelets 342,000. Basic metabolic profile, magnesium and phosphorus are unremarkable. Urinalysis is also unremarkable. Blood cultures x2 and influenza A and B are negative. ASSESSMENT: 1. Acute hypoxic respiratory failure. 2. Asthma with acute exacerbation. 3. Systemic inflammatory response syndrome, improving. 4. Hypertension. DISCUSSION AND PLAN: We will resume the patient's home losartan. We will continue her antibiotics, nebulized medications, and steroids. Pulmonary and Critical Care will continue to follow along while she remains in house. I would like to see her stay in the IMCU for an additional 24 hours and prove that she can go without BiPAP. ZACHERY
[2018-08-25] MEDS: Montelukast Sodium 10 mg Tablet PO SCH (21:06)
[2018-08-26 04:12] LABS: #Lymphocytes 1.7 thou/uL (1.20-3.40); #Monocytes 1.1 thou/uL (0.11-0.59); #Neutrophils 10.3 thou/uL (1.40-6.50); %Basophils 0.1 % (0.0-1.0); %Eosinophils 0.3 % (0.0-10.0); %Lymphocytes 12.6 % (21.0-51.0); %Monocytes 8.4 % (0.0-10.0); %Neutrophils 78.6 % (42.0-75.0); Hemoglobin 11.8 g/dL (12.0-16.0); Mean Corpuscular Hemoglobin 30.2 pg (27.0-31.0); Mean Corpuscular Volume 94.3 fL (78.0-98.0); Mean Platelet Volume 6.3 fL (7.4-10.4); Platelet Count 340 thou/uL (130-400); RBC Distribution Width 11.6 % (11.5-14.5); Red Blood Cell (RBC) Count 3.91 mill/uL (4.20-5.40); White Blood Cell (WBC) Count 13.1 thou/uL (4.8-10.8)
[2018-08-26 04:29] LABS: Anion Gap 9 mmol/L (10-20); BUN (Urea Nitrogen) 25 mg/dL (9.8-20.1); Calc. Creatinine Clearance 48 mL/min (70-130); Calcium 8.9 mg/dL (7.8-10.44); Carbon Dioxide 24 mmol/L (23-31); Chloride 111 mmol/L (98-107); Estimated GFR-MDRD 53; Glucose 103 mg/dL (83-110); Magnesium 2.4 mg/dL (1.6-2.6); Phosphorus 2.9 mg/dL (2.3-4.7); Potassium 3.5 mmol/L (3.5-5.1); Sodium 140 mmol/L (136-145)
[2018-08-26] MEDS: Azithromycin 250 MG TAB PO SCH (08:53)
[2018-08-26] MEDS: FLUoxetine HCl 20 MG CAP PO SCH (08:54)
[2018-08-26] MEDS: Losartan 25 MG TAB PO SCH (08:54)
[2018-08-26] MEDS: predniSONE 20 MG TAB PO SCH (08:54)
[2018-08-26] MEDS: Cefdinir 300 MG CAP PO SCH ×2 (08:54→19:59)
[2018-08-26] MEDS: guaiFENesin ER 600 MG TAB PO SCH ×2 (08:54→19:59)
[2018-08-26] MEDS ORDERED: Potassium Chloride 20 MEQ TAB PO SCH (14:00)
--- NOTE | 2018-08-26 14:07 | PRG ---
DATE OF SERVICE: 08/26/2018 SERVICE: Pulmonary Medicine. INTERVAL HISTORY: The patient indicates feeling much improved today. She denies any current chest pain, shortness of breath, fevers or chills. Otherwise , there has been no interval change to her condition. Nursing reports no overnight events. She was able to go all night last night without BiPAP. PHYSICAL EXAMINATION: VITAL SIGNS: Afebrile, pulse 85, blood pressure 136/114, respirations 20, saturation 95% on 3 liters nasal cannula. GENERAL: The patient is awake and alert, in no apparent distress. LUNGS: Much improved air entry. There are crackles and expiratory wheezing present. Rhonchi clear with cough today. HEART: Normal rate, regular. ABDOMEN: Soft, nontender, nondistended. Bowel sounds are positive. MUSCULOSKELETAL: No cyanosis or clubbing. There is no pitting in the bilateral lower extremities. NEUROLOGIC: Grossly nonfocal. LABORATORY DATA: WBC 13.1, hemoglobin 11.8, platelets 340,000. Basic metabolic profile is essentially unremarkable. Her creatinine is 1.02. Magnesium and phosphorus fall within normal limits and potassium is 3.5. Urinalysis is unremarkable. Respiratory virus panel was positive for respiratory syncytial virus B. Blood cultures x2 and influenza are negative. ASSESSMENT: 1. Acute hypoxic respiratory failure. 2. Asthma with acute exacerbation. 3. Acute bronchitis secondary to respiratory syncytial virus B. 4. Hypokalemia. DISCUSSION AND PLAN: I will give the patient a dose of potassium and also single dose of Lasix. She will be transitioned out of the ICU to the medical unit. Antibiotics can be discontinued after a total duration of 5 days. Steroids can be discontinued after a 2-week course. Pulmonary Critical Care will continue to follow along, but Dr. Hernandez will assume care in the morning. ZACHERY
[2018-08-26] MEDS: Montelukast Sodium 10 mg Tablet PO SCH (19:59)
[2018-08-26] MEDS ORDERED: cloNIDine 0.1 MG TAB PO SCH (20:30)
[2018-08-27] MEDS: cloNIDine 0.1 MG TAB PO PRN (04:04)
--- NOTE | 2018-08-27 07:52 | PRG ---
DATE OF SERVICE: 08/27/2018 SUBJECTIVE: Ms. Hoff is doing a little better. She still feels short of breath, and has some cough. OBJECTIVE: VITAL SIGNS: Temperature 97.8, BP 143/76, pulse 73. LUNGS: Reveal scattered wheezes throughout the entire extent of the lung exam. HEART: Reveals no murmur. LABORATORY DATA: Blood cultures negative thus far. IMPRESSION: 1. Exacerbation of chronic obstructive pulmonary disease/asthma. 2. Bronchitis. PLAN: The patient is currently on Zithromax and Omnicef. Additionally, she is on prednisone 40 mg e very day as well as daily breathing treatments. We will await further input from Pulmonary to see if there is anything else we can do to improve her situation.
[2018-08-27] MEDS: predniSONE 20 MG TAB PO SCH (08:56)
[2018-08-27] MEDS: FLUoxetine HCl 20 MG CAP PO SCH (08:59)
[2018-08-27] MEDS: Azithromycin 250 MG TAB PO SCH (08:59)
[2018-08-27] MEDS: guaiFENesin ER 600 MG TAB PO SCH ×2 (08:59→20:11)
[2018-08-27] MEDS: Losartan 25 MG TAB PO SCH (08:59)
[2018-08-27] MEDS: Cefdinir 300 MG CAP PO SCH ×2 (08:59→20:11)
[2018-08-27 12:46] LABS: Bicarbonate (HCO3v) 19.5 mmol/L (1.0-85.0); CO2 Tension (PvCO2) 24.2 mmHg (41.0-51.0); Calcium, Ionized 0.94 mmol/L (1.12-1.32); Hemoglobin - Calc 12.7 g/dL (12.0-18.0); O2 Tension (PvO2) 156.5 mmHg (35.0-45.0); T. Carbon Dioxide 20.2 mmol/L (1.0-85.0); pH (Venous) 7.513 (7.35-7.45); vO2 Saturation-calc 99.6 % (94-98)
[2018-08-27 12:47] LABS: Lactate 1.64 mmol/L (0.50-2.20)
[2018-08-27] MEDS: Montelukast Sodium 10 mg Tablet PO SCH (20:11)
--- NOTE | 2018-08-28 07:50 | PRG ---
DATE OF SERVICE: 08/28/2018 SUBJECTIVE: Ms. Hoff is feeling a little bit better. She is still short of breath and wheezing havi ng some coughing. PHYSICAL EXAMINATION: VITAL SIGNS: Temperature 98.4, BP 154/91, O2 sat 94% on 2 liters. LUNGS: Reveal diffuse wheezes. No evidence of any rales or rhonchi. HEART: Reveals a regular rate and rhythm without murmurs, gallops, or rubs. IMPRESSION: 1. Pneumonia. 2. Exacerbation of chronic obstructive pulmonary disease/asthma. PLAN: Continue current therapy. I believe she is making some progress and improvement.
[2018-08-28] MEDS: Losartan 25 MG TAB PO SCH (08:16)
[2018-08-28] MEDS: FLUoxetine HCl 20 MG CAP PO SCH (08:17)
[2018-08-28] MEDS: Cefdinir 300 MG CAP PO SCH ×2 (08:17→20:16)
[2018-08-28] MEDS: guaiFENesin ER 600 MG TAB PO SCH ×2 (08:17→20:16)
[2018-08-28] MEDS: Azithromycin 250 MG TAB PO SCH (08:18)
[2018-08-28] MEDS: predniSONE 20 MG TAB PO SCH (08:18)
--- NOTE | 2018-08-28 11:48 | PQF ---
CLINICAL DOCUMENTATION IMPROVEMENT CLARIFICATION FORM: ICD-10 Updated PLEASE DO AN ADDENDUM TO THE PROGRESS NOTE WITH ANY DOCUMENTATION UPDATES OR ADDITIONS AND CARRY THROUGH TO DC SUMMARY. THANK YOU. DATE: 08/28/18; 08/29/18 ATTN: Dr. Michele Ford Please exercise your independent, professional judgment in responding to the clarification form. Clinical indicators are provided on the bottom of this form for your review Please check appropriate box(s): [ ] Acute Respiratory Failure: [ ] with Hypoxia [ ] with Hypercapnia [ ] Acute On Chronic Respiratory Failure: [ ] with Hypoxia [ ] with Hypercapnia [ ] Acute Respiratory Failure due to: [ ] Chronic Respiratory Failure only [ ] with Hypoxia [ ] with Hypercapnia [ ] Other diagnosis [ ] Unable to determine In addition, please specify: Present on Admission (POA): [ ] Yes [ ] No [ ] Unable to determine For continuity of documentation, please document condition throughout progress notes and discharge summary. Thank You. CLINICAL INDICATORS - SIGNS / SYMPTOMS / LABS H&P 08/24: CAME TO THE ER WITH DIFFICULTY BREATHING. SHE HAD MULTIPLE NEBULIZER TREATMENTS AT HOME, MORE GIVEN IN THE ER AND WAS NOT IMPROVING AND FAILED CPAP, HAD TO BE PUT ON BIPAP FOR ADMISSION AND PUT IN ICU. VS: PULSE 113 RESP 24-29 SATURATING 94% ON BIPAP CAN TALK W/ IT ON IN SHORT WORD BURSTS PN 08/28: O2 SAT 94% ON 2 LITERS RISKS: H&P: SEVERE ASTHMA/ CHRONIC OBSTRUCTIVE PULMONARY DISEASE EXACERBATION PULMONOLOGY PN 08/26: ACUTE BRONCHITIS SECONDARY TO RESPIRATORY SYNCYTIAL VIRUS B. TREATMENT: ICU ADMIT PULMONOLOGY CONSULT ORDER 08/24: DUONEB Q6 HR ORDER 08/24: RESP: CPAP/ BIPAP TX CONTINUOUS. ORDER 08/25: RESP: O2 TO KEEP SATS 92% Thank you, Briana (This form is maintained as a part of the permanent medical record) 2014 [employer]. All Rights Reserved Briana Vazquez RN, BSN [email or web address] Office: [phone] [facility]
[2018-08-28] MEDS: Montelukast Sodium 10 mg Tablet PO SCH (20:16)
[2018-08-28] MEDS: Sodium Chloride 0.65% Nasal 44 ML BOT EA NARE PRN (21:33)
[2018-08-29] MEDS: Sodium Chloride 0.65% Nasal 44 ML BOT EA NARE PRN (04:27)
--- NOTE | 2018-08-29 07:36 | PRG ---
DATE OF SERVICE: 08/29/2018 Ms. Hoff is doing better. She has less shortness of breath. Still has some coughing. PHYSICAL EXAMINATION: VITAL SIGNS: Temperature is 97.9, O2 sats 97%, blood pressure 151/94. LUNGS: Her lungs reveal diffuse wheezes. HEART: Reveals a regular rate and rhythm without murmurs, gallops or rubs. ABDOMEN: Soft, nontender, bowel sounds present and active. No hepatosplenomegaly is noted. IMPRESSION: Stable. PLAN: We will continue current medications. Hopefully, discharge tomorrow.
[2018-08-29] MEDS: Losartan 25 MG TAB PO SCH (09:05)
[2018-08-29] MEDS: Cefdinir 300 MG CAP PO SCH ×2 (09:05→20:11)
[2018-08-29] MEDS: FLUoxetine HCl 20 MG CAP PO SCH (09:06)
[2018-08-29] MEDS: guaiFENesin ER 600 MG TAB PO SCH ×2 (09:06→20:12)
[2018-08-29] MEDS: predniSONE 20 MG TAB PO SCH (09:06)
[2018-08-29] MEDS: Montelukast Sodium 10 mg Tablet PO SCH (20:11)
[2018-08-30] MEDS: cloNIDine 0.1 MG TAB PO PRN (04:54)
--- NOTE | 2018-08-30 07:45 | PRG ---
DATE OF SERVICE: 08/30/2018 Ms. Hoff is doing much better today. Notes much less shortness of breath, less coughing. PHYSICAL EXAMINATION: VITAL SIGNS: BP 170/68, temperature 98.4, O2 sats on room air 93%. She does desat at night, slightl y requiring some oxygen. LUNGS: A considerable decrease in wheezing. No rales or rhonchi. HEART: Regular rate and rhythm without murmurs, gallops or rubs. IMPRESSION: Exacerbation of chronic obstructive pulmonary disease with acute community-acquired pneu monia. PLAN: She may be discharged home today. She will continue her home medications. We will continue h er on prednisone. Continue antibiotics.
[2018-08-30] MEDS: guaiFENesin ER 600 MG TAB PO SCH (07:51)
[2018-08-30] MEDS: Losartan 25 MG TAB PO SCH (07:51)
[2018-08-30] MEDS: predniSONE 20 MG TAB PO SCH (07:51)
[2018-08-30] MEDS: FLUoxetine HCl 20 MG CAP PO SCH (07:51)
--- NOTE | 2018-08-30 08:16 | DIS ---
DATE OF ADMISSION: 08/24/2018 DATE OF DISCHARGE: 08/30/2018 DISCHARGE DIAGNOSES: 1. Exacerbation of chronic obstructive pulmonary disease. 2. Community-acquired pneumonia. ADMITTING PHYSICIAN: Dr. Michele Ford CONSULTING PHYSICIAN: Dr. Eason [facility] SUMMARY: The patient is a 73-year-old female with known history of severe asthma and COPD. She came to the emergency room complaining of shortness of breath. She was found to be in some resp iratory distress. She was admitted and placed in the ICU due to BiPAP being necessary. Pulmonary co nsult was obtained from Dr. Eason. She was started on IV steroids. Continued on BiPAP. Continued on intravenous antibiotics, as well as IV steroids. She made slow, steady progress throughout her h ospitalization. By 08/26/2018 she was able to be discharged to the floor. She was continued to be m onitored. She was eventually placed on p.o. prednisone as well as p.o. Omnicef. Continued her nebul ization treatments. She continued to have trouble with some mild respiratory distress as well as oxygenation. This did i mprove by 08/30/2018 where she could be discharged home. She was doing much better at that time with O2 sats 93% on room air. She was discharged home on Omnicef 300 mg p.o. b.i.d., prednisone 40 mg da milton. Additionally, she will maintain her home medications; fluticasone, Trelegy Ellipta, Symbicort, albuterol nebs, losartan 100 mg daily, fluoxetine 20 mg daily, montelukast 10 mg daily, diltiazem 240 mg daily. She will be seen back in follow up with me in approximately 3-5 days.
[2018-08-30 12:19] VITALS: BP 129/83; TEMP 97.6
--- NOTE | 2018-09-06 14:48 | EKG ---
Test Reason : SEPSIS ALERT Blood Pressure : / mmHG Vent. Rate : 101 BPM Atrial Rate : 101 BPM P-R Int : 134 ms QRS Dur : 090 ms QT Int : 398 ms P-R-T Axes : 080 035 056 degrees QTc Int : 516 ms Sinus tachycardia with occasional Premature ventricular complexes Possible Inferior infarct , age undetermined Abnormal ECG Confirmed by YAYO TUTTLE M.D. ([id number]), purchase request editor BLANCA NATARAJAN ([id number]) on 09/06/2018 2:47:51 PM Referred By: Confirmed By:YAYO TUTTLE M.D.
== END 2018-08-30 11:25 | disposition home or self-care (01) | DRG 193 ==
LOC: ERS 09:50 → IMCU/EMU 13:48 → ONC 08-26 17:09 → T4-A 08-26 21:21
PROVIDERS: ADMIT Family Medicine; ATTEND Family Medicine
PROC: 5A09457 Assistance with Respiratory Ventilation, 24-96 Consecutive Hours, Continuous Positive Airway Pressure (ICD-10-PCS; principal; 2018-08-24)
DX: J18.9 Pneumonia, unspecified organism (principal); J96.01 Acute respiratory failure with hypoxia; J96.02 Acute respiratory failure with hypercapnia; J44.0 Chronic obstructive pulmonary disease with (acute) lower respiratory infection; J45.51 Severe persistent asthma with (acute) exacerbation; R65.10 Systemic inflammatory response syndrome (SIRS) of non-infectious origin without acute organ dysfunction; J44.1 Chronic obstructive pulmonary disease with (acute) exacerbation; I10 Essential (primary) hypertension; H91.90 Unspecified hearing loss, unspecified ear; Z87.891 Personal history of nicotine dependence; Z79.82 Long term (current) use of aspirin; M81.0 Age-related osteoporosis without current pathological fracture; E87.6 Hypokalemia; J20.9 Acute bronchitis, unspecified; B97.4 Respiratory syncytial virus as the cause of diseases classified elsewhere
CPT/HCPCS: 36415; 71045; 71046; 80048; 80053; 81003; 82330; 82435; 82803; 83605; 83735; 84100; 84132; 84295; 84484; 85014; 85025; 87040; 87633; 87804; 93005; 94640; 94644; 94660; 96361; 96365; 96367; J0456; J0692; J7050; J7506; J7611; J7620

== ENCOUNTER 2018-11-12 13:12 | Outpatient (CLI) | payer MEDICARE ==
--- NOTE | 2018-11-12 14:55 | RAD ---
CHEST TWO VIEWS: History: Dyspnea. Comparison: 08-22-18 FINDINGS: Cardiac silhouette and pulmonary vasculature unremarkable. Mediastinum is midline with aortic calcifi cation. Linear scarring at the left upper lobe is stable. Right lung is clear. No confluent airspace consolidation, pneumothorax, or pleural fluid. IMPRESSION: 1. Atherosclerosis. 2. Chronic type findings are stable. POS: [facility]
== END 2018-11-12 13:13 | disposition home or self-care (01) ==
LOC: RAD 13:12
PROVIDERS: ATTEND Internal Medicine Critical Care Medicine
DX: R06.00 Dyspnea, unspecified (principal); I70.0 Atherosclerosis of aorta; J98.4 Other disorders of lung
CPT/HCPCS: 71046

== ENCOUNTER 2019-08-24 15:27 | Inpatient (IN) | payer MEDICARE ==
[2019-08-24] MEDS ORDERED: Iopamidol-370 76% 500 ML 1 ML ONE (16:45)
[2019-08-24 16:58] LABS: Base Excess-Venous -1.6 mmol/L (-2.0 to 3.0); Bicarbonate (HCO3v) 20.5 mmol/L (22.0-28.0); CO2 Tension (PvCO2) 24.5 mmHg (40.0-50.0); Calcium, Ionized 1.08 mmol/L (See Comments:); Chloride 110 mmol/L (98-107); Hemoglobin - Calc 8.3 g/dL (12.0-16.0); Potassium 3.5 mmol/L (3.5-5.1); Sodium 141 mmol/L (138-145); T. Carbon Dioxide 21.2 mmol/L (22.0-28.0); vO2 Saturation-calc 96.6 % (60.0-85.0)
[2019-08-24 17:07] LABS: #Eosinphils 0.1 thou/uL (0.0-0.7); #Lymphocytes 1.4 thou/uL (1.20-3.40); #Monocytes 1.5 thou/uL (0.11-0.59); #Neutrophils 10.7 thou/uL (1.40-6.50); %Basophils 0.1 % (0.0-1.0); %Eosinophils 0.6 % (0.0-10.0); %Lymphocytes 10.3 % (21.0-51.0); %Monocytes 10.9 % (0.0-10.0); %Neutrophils 78.1 % (42.0-75.0); Hemoglobin 8.3 g/dL (12.0-16.0); Mean Corpuscular HGB CONC 33.1 g/dL (32.0-36.0); Mean Corpuscular Hemoglobin 30.5 pg (27.0-31.0); Mean Corpuscular Volume 92.3 fL (78.0-98.0); Platelet Count 457 thou/uL (130-400); RBC Distribution Width 12.2 % (11.5-14.5); Red Blood Cell (RBC) Count 2.72 mill/uL (4.20-5.40); White Blood Cell (WBC) Count 13.7 thou/uL (4.8-10.8)
--- NOTE | 2019-08-24 17:11 | RAD ---
EXAM: Portable chest PROVIDED CLINICAL HISTORY: Dyspnea COMPARISON: 08/24/2018 FINDINGS: Cardiac and mediastinal silhouette is within normal limits. No focal consolidation, pleural fluid or pneumothorax evident. IMPRESSION: No evidence for an acute cardiopulmonary process.
[2019-08-24 17:12] LABS: INR-International Normal Ratio 1.4; PTT 39.6 SEC (22.9-36.1); Prothrombin Time 16.7 SEC (12.0-14.7)
--- NOTE | 2019-08-24 17:13 | CT ---
Exam: CT brain PROVIDED CLINICAL HISTORY: Altered mental status COMPARISON: 07/07/2015 FINDINGS: The ventricular system is normal in size and morphology. No evidence for intracranial hemorrhage or mass effect. The extracranial soft tissues and osseous structures demonstrate no evidence for an acute abnormality. There is abnormal density present within the left CP angle may reflect meningioma. Other etiologies are possible. Chronic microvascular ischemic changes are seen. Evaluation is limited by patient motion. IMPRESSION: 1. No evidence for intracranial hemorrhage or mass effect. 2. Abnormal density within the left CP angle. Nonemergent brain MRI is recommended.
[2019-08-24 17:29] LABS: ALT (SGPT) 17 U/L (8-55); AST (SGOT) 17 U/L (5-34); Alkaline Phosphatase 96 U/L (40-110); Anion Gap 16 mmol/L (10-20); BUN (Urea Nitrogen) 14 mg/dL (9.8-20.1); Bilirubin, Total 0.6 mg/dL (0.2-1.2); Calc. Creatinine Clearance 0 mL/min (70-130); Calcium 9.2 mg/dL (7.8-10.44); Carbon Dioxide 23 mmol/L (23-31); Chloride 107 mmol/L (98-107); Estimated GFR-MDRD 58; Globulin 3.2 g/dL (2.4-3.5); Glucose 87 mg/dL (83-110); Potassium 3.6 mmol/L (3.5-5.1); Protein, Total 6.2 g/dL (6.0-8.3); Sodium 142 mmol/L (136-145)
[2019-08-24] MEDS ORDERED: methylPREDNISolone Sod Succ/PF 125 MG/2 ML VIAL ONE (17:30)
[2019-08-24] MEDS ORDERED: Fentanyl 100 MCG/2 ML VIAL ONE (19:21)
[2019-08-24] MEDS ORDERED: Ondansetron PF 4 MG/2 ML Vial IVP PRN ×2 (20:02→20:03)
[2019-08-24] MEDS ORDERED: Senokot S 8.6-50 MG TAB PO PRN (20:02)
[2019-08-24] MEDS ORDERED: Bisacodyl 5 MG TAB PO PRN (20:02)
[2019-08-24] MEDS ORDERED: HYDROcodone/Acetaminophen 5/325 mg Tablet PO PRN ×2 (20:03)
[2019-08-24] MEDS ORDERED: Acetaminophen 325 MG TAB PO PRN (20:03)
[2019-08-24] MEDS ORDERED: Ondansetron ODT 4 MG TAB SL PRN (20:03)
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
--- NOTE | 2019-08-24 20:09 | CT ---
CT ANGIOGRAM ABDOMEN AND PELVIS WITH IV CONTRAST AND 3D RECONSTRUCTIONS CT ANGIOGRAM BILATERAL LOWER EXTREMITIES WITH RUNOFF TO THE FEET WITH IV CONTRAST AND 3D RECONSTRUCTI ONS 08/24/19 HISTORY: Left foot ischemia. History of recent toe amputation at outside facility. COMPARISON: CT abdomen and pelvis on 05/22/15. FINDINGS: There is bibasilar atelectasis. The liver, spleen, pancreas, and bilateral adrenal glands as well as urinary bladder demonstrate a no rmal CT appearance. The uterus is either small or surgically absent. There is a low density lesion in the inferior pole right kidney as well as in the superior pole left kidney which are larger in size when compared to the prior exam in 2015. The lesion in the superior p ole left kidney measures 1.3 cm with inferior pole right renal lesion measures 1.4 cm. Lesion in the inferior pole right kidney does demonstrate fluid attenuation compatible with a cyst. The lesion in t he superior pole is more difficult to characterize but also statistically likely represents a cyst. A subcentimeter too small to characterize hypodense lesion seen in the portion of the left kidney. Left ovarian cyst measuring 2.6 cm. Vascular calcifications are seen in the coronary arteries. Multiple compression fractures involving all of the lumbar vertebral bodies and visualized thoracic v ertebral bodies. Multilevel vertebroplasty changes are seen in the lower thoracic spine and involving the L4 vertebral body. Exact ages of the fractures is difficult to determine based on this study. POS: [facility]
[2019-08-24] MEDS ORDERED: Albuterol Sulfate 1.25 MG/3 ML NEB IPPB PRN (20:14)
[2019-08-24 20:57] VITALS: BMI 21.9
[2019-08-24] MEDS ORDERED: Vancomycin HCl 1 GM in Premix Bag 1 BAG IVPB SCH ×2 (21:00→22:00)
[2019-08-24] MEDS ORDERED: Piperacillin/Tazobactam 4.5 GM in Sodium Chloride 0.9% 100 ML IVPB SCH (21:00)
[2019-08-24] MEDS ORDERED: Vancomycin HCl 1.25 GM in Sodium Chloride 0.9% 250 ML 250 ML IVPB SCH (21:45)
[2019-08-24] MEDS: Sodium Chloride 0.9% 1,000 ML IV SCH (22:43)
[2019-08-24] MEDS: guaiFENesin ER 600 MG TAB PO SCH (22:44)
[2019-08-24] MEDS: Montelukast Sodium 10 mg Tablet PO SCH (22:44)
[2019-08-25] MEDS: Piperacillin/Tazobactam 3.375 GM in Sodium Chloride 0.9% 100 ML IVPB SCH ×3 (01:33→12:39)
[2019-08-25] MEDS: Sodium Chloride 0.9% 1,000 ML IV SCH (02:27)
[2019-08-25] MEDS ORDERED: Lorazepam 2 MG/ML VIAL ONE ×2 (03:17→04:19)
[2019-08-25] MEDS ORDERED: Lorazepam 2 MG/ML VIAL SLOW IVP SCH ×2 (03:30→04:30)
[2019-08-25 05:58] LABS: Bacteria/HPF None Seen HPF (None Seen); Bilirubin Negative (Negative); Blood, Urine Trace (Negative); Clarity Clear (Clear); Glucose, Urine (Dipstick) Normal (Negative); Leukocyte Negative Leu/uL (Negative); Nitrite Negative (Negative); Protein, Urine (Dipstick) 20 mg/dL (Neg-Trace); RBC/HPF 0-3 HPF (0-3); Squamous Epithelial 0-3 HPF (0-3); Transitional Epithelial 0-3 HPF (None Seen); WBC/HPF 0-3 HPF (0-3); Yeast-Budding 2+ HPF (None Seen)
[2019-08-25] MEDS: Mometasone/Formoterol 120 PUFF INHALER INH SCH ×2 (06:57→20:16)
[2019-08-25] MEDS ORDERED: FLU VACC TS2019-20(65YR UP)/PF 180 MCG/0.5 ML SYRINGE IM ONE (09:00)
[2019-08-25] MEDS ORDERED: Non-Formulary Item 1 EACH (Fluticasone/Umeclidin/Vilanter [Trelegy Ellipta 100-62.5-25] 1 IH SCH (09:00)
--- NOTE | 2019-08-25 09:36 | CON ---
DATE OF CONSULTATION: HISTORY OF PRESENT ILLNESS: Ms. Hoff is a 74-year-old woman, who was admitted from the emergency department last night. She has been in [place] recently at [facility] and had peripheral vascular procedures on her left leg. She initially had a posterior tibial artery stenting placed and down into the foot, which subsequently occluded. She then underwent a distal popliteal insitu vein bypass, which is open and functional. She has also undergone transmetatarsal amputation. She presented with a daughter, who is not here right now after being discharged recently from [facility]. Currently, she is agitated when aroused. She does not follow any commands and cannot answer any questions. The remainder of this history is gleaned from the chart. PAST MEDICAL HISTORY: 1. Hypertension. 2. Dyslipidemia. 3. Congestive heart failure. 4. Asthma. 5. COPD. 6. Depression. 7. Peripheral vascular disease. PAST SURGICAL HISTORY: 1. Hysterectomy. 2. Tubal ligation. 3. Left popliteal to dorsalis pedis artery bypass. SOCIAL HISTORY: She is a former smoker. MEDICATIONS: Prior to admission are noted. ALLERGIES: NONE. PHYSICAL EXAMINATION: Limited to her peripheral vascular status. The patient is agitated when you uncover her. I was able to get a Doppler signal in her bypass graft. Her leg is wrapped to the mid calf and I did not expose this. ASSESSMENT AND PLAN: Peripheral vascular disease with patent bypass graft on the dorsalis pedis artery, status post transmetatarsal amputation with reported open wound to the foot. I would get Wound Care to see her. She has been revascularized and I see no further indication for further studies. She probably is going to need a wound VAC if she cannot tolerate this. Her only other option is going to be further higher level amputation. I spoke with the vascular surgeon from [facility] this evening. He updated me on what they did - They performed and arterialization of the foot using the patients insitu GSV. Valves were lysed and left with venous outflow into the foot. I have pictures if the foot at d/c from [place] and will compare to the foot with wound care on Monday. He was fairly certain that nothing could have changed in the short time from d/c to require amputation. Job ID: [id number] [facility]
[2019-08-25] MEDS: Clopidogrel Bisulfate 75 MG TAB PO SCH ×2 (09:44→09:55)
[2019-08-25] MEDS: FLUoxetine HCl 20 MG CAP PO SCH ×2 (09:44→09:55)
[2019-08-25] MEDS: Rivaroxaban 2.5 MG TAB PO SCH ×3 (09:44→17:33)
[2019-08-25] MEDS: guaiFENesin ER 600 MG TAB PO SCH ×3 (09:44→20:00)
[2019-08-25] MEDS: Silver Sulfadiazine 1% Cream 50 GM TUBE TP SCH (09:51)
[2019-08-25 11:32] LABS: Anion Gap 17 mmol/L (10-20); BUN (Urea Nitrogen) 15 mg/dL (9.8-20.1); Calc. Creatinine Clearance 46 mL/min (70-130); Calcium 8.6 mg/dL (7.8-10.44); Carbon Dioxide 19 mmol/L (23-31); Chloride 110 mmol/L (98-107); Estimated GFR-MDRD 58; Glucose 142 mg/dL (83-110); Potassium 3.7 mmol/L (3.5-5.1); Sodium 142 mmol/L (136-145)
[2019-08-25 11:33] LABS: Band 2 % (5-11); Hemoglobin 8.2 g/dL (12.0-16.0); Lymphocytes 13 % (21-51); MDiff Complete? YES; Mean Corpuscular HGB CONC 33.1 g/dL (32.0-36.0); Mean Corpuscular Hemoglobin 30.6 pg (27.0-31.0); Mean Corpuscular Volume 92.4 fL (78.0-98.0); Mean Platelet Volume 6.2 fL (7.4-10.4); Monocytes 2 % (0-10); Neutrophil 83 % (42-75); Platelet Count 438 thou/uL (130-400); RBC Distribution Width 12.2 % (11.5-14.5); Red Blood Cell (RBC) Count 2.68 mill/uL (4.20-5.40); White Blood Cell (WBC) Count 14.1 thou/uL (4.8-10.8)
[2019-08-25] MEDS: Acetaminophen 325 MG TAB PO PRN ×2 (12:40→19:59)
[2019-08-25] MEDS: Cefepime 1 GM in Sodium Chloride 0.9% 100 ML IVPB SCH ×2 (15:51→21:18)
[2019-08-25] MEDS: metroNIDAZOLE 500 MG in Premix Bag 1 BAG IVPB SCH ×2 (15:51→21:18)
--- NOTE | 2019-08-25 16:05 | CON ---
DATE OF CONSULTATION: 08/25/2019 REASON FOR CONSULTATION: Left foot ischemia with necrosis, transmetatarsal amputation and recent revascularization. HISTORY OF PRESENT ILLNESS: A 74-year-old whom I had treated in the past for spinal infection in 2015. Ms. Hoff has a history of COPD, atrial fibrillation, and osteomyelitis of lower thoracic spine in 2015. The patient was treated and recovered from the process and in 2018, she had a surgery for rectal prolapse with sigmoid colectomy and rectopexy and a few months later in 2018, she had an exacerbation of COPD. At this time, she had just recently been at [facility] in [place], where she had what appears to be a femoral popliteal bypass or femoral tibial bypass in the left low lower extremity as well as a transmetatarsal amputation. She was released home, but became confused and was brought in for readmission and has had delirium since. The review of systems is not reliable. I do not know if it is because of hearing impairment or the underlying delirium state. She has not had any seizure activity. No evidence of respiratory difficulty. She urinates in the diapers. Dr. Ford has evaluated the patient. The patient had an aortogram with runoff with CT angio. The reading of the study is unusual because it does not have any comments on the section of the actual angiogram. Now, the only observations are related to the abdomen and pelvis findings, which showed multiple compression fractures in the lumbar vertebral bodies and thoracic vertebral bodies, but again no comments on the angiogram itself. Dr. Ford has evaluated the patient and felt that the bypass was patent on the dorsalis pedis artery. Wound Care was recommended. No further studies were recommended and there was a concern with likely future below-knee amputation requirement. PAST MEDICAL HISTORY: COPD, osteoarthrosis, compression fractures of the spine, lower thoracic spine diskitis, osteomyelitis, hypertension, peripheral vascular disease with recent revascularization in left lower extremity, salivary gland tumor, hysterectomy, partial colectomy for management of rectal prolapse, tubal ligation. SOCIAL HISTORY: Former smoker. No other significant findings. 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 ALLERGIES: NO TRUE HYPERSENSITIVITY REACTIONS NOTED. FAMILY HISTORY: Noncontributory. CURRENT MEDICATIONS: 1. Tylenol. 2. Albuterol. 3. DuoNeb. 4. Dulcolax. 5. Plavix. 6. Prozac. 7. Mucinex. 8. Dulera. 9. Singulair. 10. Zofran. 11. Zosyn. 12. Xarelto. 13. Vancomycin. PHYSICAL EXAMINATION: VITAL SIGNS: T-max 98.9, blood pressure 160/79, pulse 96, respirations 16, and O2 saturation 96%. SKIN: Shows the areas of scab in the medial ankle right side and the transmetatarsal amputation site which has an open wound necrotic skin that pretty much all the way to the hindfoot region. There is an area of skin necrosis at the medial aspect of the left leg. The stitches for the bypass surgery looks like a femoral tibial bypass are noted. She also has the donor site or the proximal site of the bypass in the left medial thigh region with an area of necrosis of the skin as well in the elliptical incision. No lymphadenopathy. HEENT: Ocular movements are conjugate. Pupils are equal. Oral cavity with artificial dentures. NECK: Supple. No jugular vein distention. LUNGS: Symmetric. Clear breath sounds. HEART: S1 and S2. Regular rate. No S3 or S4. ABDOMEN: Soft. Not distended or tender. No ascites. No bladder distention. I could not feel any pulses in dorsalis pedis or posterior tibialis, maybe 1+ popliteals right and left side. NEUROLOGIC: She is awake. She is delirious and has a hard time following commands, establishes eye contact. Not clear if the delirium is due to hearing impairment or due to true delusional thinking process. LABORATORY DATA: White cell count is 13.7 to 14, hemoglobin 8.3, platelets 457 , 83% neutrophils. INR 1.4. The chemistry was normal except for albumin 3.0. Urinalysis with 0 to 3 wbc's. Imaging studies have been discussed. In addition to that, she had a brain CT performed, which she did not show any acute findings. There was an abnormal density within the left CP angle. Chest x-ray with no evidence of acute cardiopulmonary process noted. ASSESSMENT: 1. Chronic obstructive pulmonary disease/asthma, osteoporosis with multiple compression fracture in thoracic and lumbar spine. Previous episode of thoracic spine, osteomyelitis, and diskitis treated to completion with no evidence of relapse. 2. Peripheral vascular disease with recent left-sided femoral tibial bypass. 3. Necrosis of the distal aspect of the transmetatarsal amputation site with no open wound. DISCUSSION: It is unlikely this wound will ever heal and I think that she requires a below-knee amputation. Right now, she is having problems with delirium and I would continue the antimicrobial therapy as prescribed. We will transition her to cefepime and vancomycin and Flagyl instead of Zosyn to avoid the potential risk of nephrotoxicity from Zosyn/Vanco combo. Job ID: [id number] [facility]
--- NOTE | 2019-08-25 16:19 | PDOC.HOSPP ---
- Subjective Encounter Date: 08/25/19 Encounter Time: 16:18 Subjective: The patient is doing better, more alert but still speaks in sentences that doesn 't make sense. Wound care came today and did not feel patient met criteria for wound vac per sitter. ID is switching antibiotics and recommend below the knee amputation. Discussed with Dr. Gonsales who will discuss with family in am - Objective Vital Signs & Weight: Vital Signs (12 hours) Temp Pulse Resp BP Pulse Ox 08/25/19 13:05 85 16 96 08/25/19 12:19 98.9 F 96 20 160/79 H 94 L 08/25/19 08:12 98.5 F 93 20 161/78 H 94 L 08/25/19 08:00 94 L 08/25/19 06:59 82 16 95 Weight Weight 119 lb 14.4 oz Result Diagrams: 08/25/19 10:57 08/25/19 10:57 Hospitalist ROS - Review of Systems ROS unobtainable: due to mental status - Medication Medications: Active Medications Generic Name Dose Route Start Last Admin Trade Name Freq PRN Reason Stop Dose Admin Acetaminophen 650 mg 08/24/19 20:02 08/25/19 12:40 Tylenol PO 650 mg Q4H PRN Administration Headache/Fever/Mild Pain (1-3) Albuterol/Ipratropium 3 ml 08/25/19 01:00 08/25/19 13:05 Duoneb NEB 3 ml [id number] REJI Administration Clopidogrel Bisulfate 75 mg 08/25/19 09:00 08/25/19 09:55 Plavix PO Not Given DAILY REJI Fluoxetine HCl 40 mg 08/25/19 09:00 08/25/19 09:55 Prozac PO Not Given DAILY REJI Guaifenesin 600 mg 08/24/19 21:00 08/25/19 09:55 Mucinex PO Not Given Q12HR REJI Cefepime HCl 1 gm/ Sodium 100 mls @ 200 mls/hr 08/25/19 14:00 08/25/19 15:51 Chloride IVPB 100 mls Q8HR REJI Administration Metronidazole 500 mg/ Device 100 mls @ 100 mls/hr 08/25/19 14:00 08/25/19 15: 51 IVPB 100 mls Q8HR REJI Administration Mometasone Furoate/Formoterol Fumar 2 puff 08/25/19 06:30 08/25/19 06:57 Dulera 200 Mcg/5 Mcg Inhaler INH Not Given BID-RT REJI Montelukast Sodium 10 mg 08/24/19 21:00 08/24/19 22:44 Singulair PO 10 mg HS REJI Administration Quetiapine Fumarate 25 mg 08/24/19 21:45 08/25/19 01:50 Seroquel PO 25 mg BIDPRN PRN Administration Agitation Rivaroxaban 2.5 mg 08/25/19 08:00 08/25/19 09:52 Xarelto PO Not Given BID-WM REJI Silver Sulfadiazine 0 gm 08/25/19 09:00 08/25/19 09:51 Silver Sulfadiazine TP Not Given DAILY REJI - Exam General Appearance: NAD, awake alert Eye: PERRL, anicteric sclera ENT: normocephalic atraumatic, no oropharyngeal lesions Neck: supple, symmetric, no JVD, no thyromegaly Heart: RRR, no murmur, no gallops, no rubs, normal peripheral pulses Respiratory: CTAB, no wheezes, no rales, no ronchi Gastrointestinal: soft, non-tender, non-distended Extremities: no cyanosis, no clubbing, no edema Skin: normal turgor, no lesions, no rashes Neurological: cranial nerve grossly intact, normal sensation to touch, no focal deficits, no new deficit Musculoskeletal: normal tone, normal strength, no muscle wasting Musculoskeletal - other findings: tenderness on left leg. Stump wrapped in gauze today. Post scab on chaparro Hosp A/P - Plan Arterial doppler 08/02: diffuse plaque in femoral and popliteal arteries. Decreased monophasic phlow proximal to mid anterior tibial artery UA 08/19: moderate blood with 30 grams of protein Chest X ray 08/24: no acute disease Left foot xray 08/13: postop changes with amputation of remaining metatarsal. N CT head 08/24: abnormal density within left CP angle. MRI recommended CTA 08/24: diffuse atherosclerotic disease with multifocal areas of mild and atherosclerotic irregularity of each common femoral artery and superficial femoral artery with moderate degrees of narrowing at each superficial femoral artery. Extensive below the knee atherosclerotic vascular calcifications. Occluded graft extending from left popliteal artery to level of the foot and into arch of foot which is occluded. Suggested bypass graft at level of proximal popliteal artery to level of foot is patent. Hysterectomy. Multiple compression fractures involving all of lumbar vertebral bodies. Bone biopsy 08/13: acute osteomyelitis. Skin and soft tissue with gangrenous necrosis and acute inflammation This is a 74 year old female with PAD s/p transmetatarsal amputation of left foot presenting with persistent non-healing wound on left foot and left chaparro. Also has acute encephalopathy #Left foot osteomyelitis s/p mid foot amputation #Severe PAD s/p anterior tibial bypass left leg plus stent placement - patient had bone biopsy done of amputation on 08/25 which shows acute osteomyelitis. Blood cultures preliminarily negative - per ID, switch antibiotics to cefepime IV and flagyl. WBC increasing to 14 - CT abdominal aortic run off today shows occluded graft to arch of foot and one patent graft. Likely needs BKA, f/u vascular surgery recs - obtain records of op reports from [facility] Acute encephalopathy - improving - possibly from delirium. UA negative,. CT head negative. Will hold off on MRI until get op reports Leukocytosis - WBC of 14.7, will switch to cefepime and flagyl per ID - chest Xray negative - UA negative - blood cultures negative Possible afib? - was on diltiazem previously and discontinued at [facility] - continue xarelto and coreg Anemia - Hb 8.3. Stable, Continue to monitor - had low iron sat of 9%, iron level 20 and TIBC [address] [facility] Ovarian cyst - 2.6 cm on CTA. Outpatient follow up. Depression - continue prozac Hypertension - continue losartan Multiple compression fractures - noted on CT scan. Old per daughter, patient denies back pain Disposition: needs possible BKA, improvement in wound infection, f/u encephalopathy Code status: full code
[2019-08-25] MEDS: Montelukast Sodium 10 mg Tablet PO SCH (20:00)
[2019-08-25] MEDS ORDERED: Vancomycin HCl 750 MG in Sodium Chloride 0.9% 250 ML 250 ML IVPB SCH (21:00)
[2019-08-25] MEDS: Lorazepam 2 MG/ML VIAL SLOW IVP PRN (22:43)
[2019-08-26] MEDS: Cefepime 1 GM in Sodium Chloride 0.9% 100 ML IVPB SCH ×3 (05:00→22:28)
[2019-08-26] MEDS: metroNIDAZOLE 500 MG in Premix Bag 1 BAG IVPB SCH ×3 (05:01→21:20)
[2019-08-26 05:43] LABS: Hemoglobin 7.8 g/dL (12.0-16.0); Mean Corpuscular HGB CONC 33.3 g/dL (32.0-36.0); Mean Corpuscular Hemoglobin 30.6 pg (27.0-31.0); Mean Platelet Volume 6.3 fL (7.4-10.4); Platelet Count 464 thou/uL (130-400); RBC Distribution Width 12.2 % (11.5-14.5); Red Blood Cell (RBC) Count 2.55 mill/uL (4.20-5.40); White Blood Cell (WBC) Count 13.4 thou/uL (4.8-10.8)
[2019-08-26 06:12] LABS: ALT (SGPT) 17 U/L (8-55); AST (SGOT) 15 U/L (5-34); Albumin 2.8 g/dL (3.4-4.8); Alkaline Phosphatase 89 U/L (40-110); Anion Gap 13 mmol/L (10-20); BUN (Urea Nitrogen) 16 mg/dL (9.8-20.1); Bilirubin, Total 0.4 mg/dL (0.2-1.2); Calc. Creatinine Clearance 41 mL/min (70-130); Calcium 8.4 mg/dL (7.8-10.44); Carbon Dioxide 22 mmol/L (23-31); Chloride 112 mmol/L (98-107); Estimated GFR-MDRD 51; Globulin 2.9 g/dL (2.4-3.5); Glucose 76 mg/dL (83-110); Potassium 3.2 mmol/L (3.5-5.1); Protein, Total 5.7 g/dL (6.0-8.3); Sodium 144 mmol/L (136-145)
[2019-08-26] MEDS: Rivaroxaban 2.5 MG TAB PO SCH ×2 (07:49→17:58)
[2019-08-26] MEDS: Clopidogrel Bisulfate 75 MG TAB PO SCH (07:49)
[2019-08-26] MEDS: guaiFENesin ER 600 MG TAB PO SCH ×2 (07:50→20:19)
[2019-08-26] MEDS: FLUoxetine HCl 20 MG CAP PO SCH (07:50)
[2019-08-26] MEDS: Silver Sulfadiazine 1% Cream 50 GM TUBE TP SCH (07:50)
--- NOTE | 2019-08-26 10:29 | PDOC.PALCO ---
Palliative Care Consult - Consult Details Requesting Physician: Dr Saleh Reason for Consult: advance directives assistance Family Members Present: None, sitter at bedside - Pertinent HPI 74 year old female who presented for non healing ulcer to left calf. Patient confused, unable to obtain history. Review of information indicate patient initially began with removal of an ingrown toenail that was non healing. Ended up being refereed to a vascular surgeon and admitted to [facility], subsequently a Bypass was done for complications related to circulation. continues with complications and partial amputation end of July to left foot. Continued complications. Admitted for mangaement of left extremity, tachycardia, confusion. - Pertinent PMH CHF, HTN, COPD, Depression - Social History Smoking Status: Former smoker Smoking: quit greater than 1 year Alcohol Use: none Drug Use History: none Living Situation: independent (Independent prior to recent series of events as per documentation) - Medications MAR Reviewed: Yes - Allergies Allergies/Adverse Reactions: Allergies Allergy/AdvReac Type Severity Reaction Status Date / Time No Known Allergies Allergy Verified 08/24/19 19:50 - Subjective Awake, speech word salad, confused. Sitter at bedside. Incontinent of bowel and bladder. - Objective Vital Signs: Vital Signs - Most Recent Temp Pulse Resp BP Pulse Ox 97.7 F 87 20 183/84 H 97 08/26/19 07:44 08/26/19 07:44 08/26/19 07:44 08/26/19 07:44 08/26/19 07:50 Palliative Performance Scale: 30 - Physical Exam Constitutional: confusion HEENT: PERRLA, moist MMs, sclera anicteric, EOMI Respiratory: clear to auscultation bilateral, unlabored breathing Cardiovascular: RRR Gastrointestinal: soft, non-tender, positive bowel sounds Musculoskeletal: pulses present, no clubbing Deviation from normal: fartial amuptation to foot, left. Neurological: moves all 4 limbs Deviation from normal: Confused, word salad. Oreitned to self Skin: cap refill <2 seconds Deviation from normal: Fragile skin, wound as per documentation. - Problem List (1) Palliative care encounter Code(s): Z51.5 - ENCOUNTER FOR PALLIATIVE CARE Current Visit: Yes Status: Acute - Plan/Recommendations Plan: [facility] Palliative Care initial visit. Attempting to identify MPOA and discuss advance directives, resuscitation status. Will also identify if family requires assistance in identifying goals of care for patient and support or education in relation to recent disease trajectory. Palliative Care RN to continue to follow, refer to Notes under note section. [30] minutes spent on this encounter with >50% of the time in counseling and coordination of care. Thank you for this very appropriate consult.
[2019-08-26] MEDS ORDERED: Potassium Chloride 20 MEQ TAB PO SCH (11:45)
[2019-08-26] MEDS ORDERED: Losartan 25 MG TAB PO SCH (12:00)
[2019-08-26] MEDS ORDERED: Amlodipine 5 MG TAB PO SCH (12:00)
[2019-08-26] MEDS: Mometasone/Formoterol 120 PUFF INHALER INH SCH ×2 (12:06→18:19)
[2019-08-26] MEDS: Acetaminophen 325 MG TAB PO PRN (14:33)
[2019-08-26] MEDS: Carvedilol 6.25 MG TAB PO SCH (20:18)
[2019-08-26 20:19] LABS: Vancomycin, Trough 9.8 ug/mL
[2019-08-26] MEDS: Montelukast Sodium 10 mg Tablet PO SCH (20:19)
[2019-08-26] MEDS: Lorazepam 2 MG/ML VIAL SLOW IVP PRN (20:21)
[2019-08-26] MEDS ORDERED: Vancomycin HCl 1 GM in Premix Bag 1 BAG IVPB SCH (21:15)
--- NOTE | 2019-08-26 21:52 | PDOC.HOSPP ---
- Subjective Encounter Date: 08/26/19 Encounter Time: 16:00 Subjective: The patient is still confused. She says her left leg pain is better. States they are "doing more surgery on me". She is unable to state where she is but after mentioning she is in a hospital she mentioned [facility] - Objective Vital Signs & Weight: Vital Signs (12 hours) Temp Pulse Resp BP BP Pulse Ox 08/26/19 20:18 160/91 H 08/26/19 20:00 98.4 F 101 H 20 160/91 H 99 08/26/19 18:21 81 18 96 08/26/19 18:19 81 18 96 08/26/19 16:34 153/96 H 08/26/19 13:32 95 20 96 08/26/19 12:13 95 199/107 H 08/26/19 12:00 97.7 F 95 18 199/107 H 96 Weight Admit Weight 119 lb 14.4 oz Weight 119 lb 14.4 oz I&O: 08/25/19 08/26/19 08/27/19 06:59 06:59 06:59 Intake Total 930 Balance 930 Result Diagrams: 08/26/19 04:43 08/26/19 04:43 Hospitalist ROS - Review of Systems Constitutional: denies: fever Respiratory: denies: cough - Medication Medications: Active Medications Generic Name Dose Route Start Last Admin Trade Name Freq PRN Reason Stop Dose Admin Acetaminophen 650 mg 08/24/19 20:02 08/26/19 14:33 Tylenol PO 650 mg Q4H PRN Administration Headache/Fever/Mild Pain (1-3) Albuterol/Ipratropium 3 ml 08/25/19 01:00 08/26/19 18:21 Duoneb NEB 3 ml [id number] REJI Administration Carvedilol 12.5 mg 08/26/19 21:00 08/26/19 20:18 Coreg PO 12.5 mg BID REJI Administration Clopidogrel Bisulfate 75 mg 08/25/19 09:00 08/26/19 07:49 Plavix PO Not Given DAILY REJI Fluoxetine HCl 40 mg 08/25/19 09:00 08/26/19 07:50 Prozac PO Not Given DAILY REJI Guaifenesin 600 mg 08/24/19 21:00 08/26/19 20:19 Mucinex PO 600 mg Q12HR REJI Administration Cefepime HCl 1 gm/ Sodium 100 mls @ 200 mls/hr 08/25/19 14:00 08/26/19 14:12 Chloride IVPB 100 mls Q8HR REJI Administration Metronidazole 500 mg/ Device 100 mls @ 100 mls/hr 08/25/19 14:00 08/26/19 21: 20 IVPB 100 mls Q8HR REJI Administration Vancomycin HCl 1 gm/ Device 200 mls @ 200 mls/hr 08/26/19 21:15 08/26/19 21: 20 IVPB 08/26/19 23:15 200 mls NOW REJI Administration Lorazepam 0.25 mg 08/25/19 22:25 08/26/19 20:21 Ativan SLOW IVP 0.25 mg Q6H PRN Administration Anxiety/Agitation Mometasone Furoate/Formoterol Fumar 2 puff 08/25/19 06:30 08/26/19 18:19 Dulera 200 Mcg/5 Mcg Inhaler INH 2 puff BID-RT REJI Administration Montelukast Sodium 10 mg 08/24/19 21:00 08/26/19 20:19 Singulair PO 10 mg HS REJI Administration Quetiapine Fumarate 25 mg 08/24/19 21:45 08/26/19 21:35 Seroquel PO 25 mg BIDPRN PRN Administration Agitation Rivaroxaban 2.5 mg 08/25/19 08:00 08/26/19 17:58 Xarelto PO Not Given BID-WM REJI Silver Sulfadiazine 0 gm 08/25/19 09:00 08/26/19 07:50 Silver Sulfadiazine TP Not Given DAILY REJI - Exam General Appearance: NAD, awake alert Eye: PERRL, anicteric sclera ENT: normocephalic atraumatic Neck: supple, symmetric, no JVD, no lymphadenopathy Heart: RRR, no murmur, no gallops, no rubs Respiratory: CTAB, no wheezes, no rales, no ronchi Gastrointestinal: soft, non-tender, no hepatomegaly Extremities - other findings: LLE necrotic stump. Posterior calf necrotic scab. Neurological: cranial nerve grossly intact, no weakness, no focal deficits Musculoskeletal: normal tone, normal strength, no muscle wasting Hosp A/P - Plan Arterial doppler 10/18: diffuse plaque in femoral and popliteal arteries. Decreased monophasic phlow proximal to mid anterior tibial artery UA /: moderate blood with 30 grams of protein Chest X ray 08/24: no acute disease Left foot xray 08/13: postop changes with amputation of remaining metatarsal. N CT head 08/24: abnormal density within left CP angle. MRI recommended CTA 08/24: diffuse atherosclerotic disease with multifocal areas of mild and atherosclerotic irregularity of each common femoral artery and superficial femoral artery with moderate degrees of narrowing at each superficial femoral artery. Extensive below the knee atherosclerotic vascular calcifications. Occluded graft extending from left popliteal artery to level of the foot and into arch of foot which is occluded. Suggested bypass graft at level of proximal popliteal artery to level of foot is patent. Hysterectomy. Multiple compression fractures involving all of lumbar vertebral bodies. Bone biopsy 08/13: acute osteomyelitis. Skin and soft tissue with gangrenous necrosis and acute inflammation This is a 74 year old female with PAD s/p transmetatarsal amputation of left foot presenting with persistent non-healing wound on left foot and left chaparro. Also has acute encephalopathy #Left foot osteomyelitis s/p mid foot amputation #Severe PAD s/p anterior tibial bypass left leg plus stent placement - patient had bone biopsy done of amputation on 08/25 which shows acute osteomyelitis. Blood cultures preliminarily negative - continue cefepime and flagyl, WBC improving to 13 - CT abdominal aortic run off today shows occluded graft to arch of foot and one patent graft. - plan for BKA tomorrow possibly if able to get consent from family Acute encephalopathy - improving - possibly from delirium. UA negative,. CT head negative. - continue to monitor Leukocytosis - WBC of 14.7, will switch to cefepime and flagyl per ID - chest Xray negative - UA negative - blood cultures negative Hypokalemia - potassium 3.2, give 40 meq potassium and recheck in am Possible afib? - was on diltiazem previously and discontinued at [facility] - continue xarelto and coreg Anemia - Hb 8.3. Stable, Continue to monitor - had low iron sat of 9%, iron level 20 and TIBC 233 at [facility] Ovarian cyst - 2.6 cm on CTA. Outpatient follow up. Depression - continue prozac Hypertension - continue losartan Multiple compression fractures - noted on CT scan. Old per daughter, patient denies back pain Disposition: BKA tomorrow possibly Code status: full code
[2019-08-27 05:50] LABS: Hemoglobin 9.4 g/dL (12.0-16.0); Mean Corpuscular HGB CONC 33.4 g/dL (32.0-36.0); Mean Corpuscular Hemoglobin 30.9 pg (27.0-31.0); Mean Corpuscular Volume 92.5 fL (78.0-98.0); Mean Platelet Volume 6.2 fL (7.4-10.4); Platelet Count 536 thou/uL (130-400); RBC Distribution Width 12.4 % (11.5-14.5); Red Blood Cell (RBC) Count 3.05 mill/uL (4.20-5.40); White Blood Cell (WBC) Count 10.9 thou/uL (4.8-10.8)
[2019-08-27] MEDS: Cefepime 1 GM in Sodium Chloride 0.9% 100 ML IVPB SCH ×3 (06:01→21:05)
[2019-08-27] MEDS: metroNIDAZOLE 500 MG in Premix Bag 1 BAG IVPB SCH ×3 (06:02→21:23)
[2019-08-27 06:22] LABS: Anion Gap 13 mmol/L (10-20); BUN (Urea Nitrogen) 12 mg/dL (9.8-20.1); Calc. Creatinine Clearance 48 mL/min (70-130); Carbon Dioxide 23 mmol/L (23-31); Chloride 109 mmol/L (98-107); Estimated GFR-MDRD 61; Potassium 3.1 mmol/L (3.5-5.1); Sodium 142 mmol/L (136-145)
[2019-08-27 06:23] LABS: Calcium 8.8 mg/dL (7.8-10.44); Glucose 94 mg/dL (83-110)
[2019-08-27] MEDS: Mometasone/Formoterol 120 PUFF INHALER INH SCH ×2 (07:24→19:06)
[2019-08-27] MEDS: Silver Sulfadiazine 1% Cream 50 GM TUBE TP SCH (07:29)
[2019-08-27] MEDS: Acetaminophen 325 MG TAB PO PRN ×2 (08:44→14:11)
[2019-08-27] MEDS: Losartan 25 MG TAB PO SCH (08:44)
[2019-08-27] MEDS: Carvedilol 6.25 MG TAB PO SCH ×2 (08:46→20:12)
[2019-08-27] MEDS: guaiFENesin ER 600 MG TAB PO SCH ×2 (08:46→20:12)
[2019-08-27] MEDS: FLUoxetine HCl 20 MG CAP PO SCH (08:47)
[2019-08-27] MEDS: Clopidogrel Bisulfate 75 MG TAB PO SCH (08:47)
[2019-08-27] MEDS: Amlodipine 5 MG TAB PO SCH (08:48)
[2019-08-27] MEDS: Rivaroxaban 2.5 MG TAB PO SCH ×2 (08:48→16:44)
[2019-08-27] MEDS: Vancomycin HCl 750 MG in Sodium Chloride 0.9% 250 ML 250 ML IVPB SCH ×2 (09:07→20:05)
--- NOTE | 2019-08-27 13:36 | PDOC.HOSPP ---
- Subjective Encounter Date: 08/27/19 Encounter Time: 13:00 Subjective: Patient continues to have some pain in left leg with some tingling. She has no other complaints. Spoke to significant other. He is frustrated he can't sign paper work since he is not medical power of privacy attorney. He feels bad she is suffering - Objective Vital Signs & Weight: Vital Signs (12 hours) Temp Pulse Resp BP BP Pulse Ox 08/27/19 12:33 98.0 F 99 24 H 115/67 93 L 08/27/19 08:48 99 151/76 H 08/27/19 08:46 151/76 H 08/27/19 07:39 98.3 F 99 20 151/76 H 93 L 08/27/19 07:21 99 16 93 L Weight Admit Weight 119 lb 14.4 oz Weight 119 lb 14.4 oz I&O: 08/26/19 08/27/19 08/28/19 06:59 06:59 06:59 Intake Total 930 Balance 930 Result Diagrams: 08/27/19 05:02 08/27/19 05:02 Hospitalist ROS - Review of Systems Gastrointestinal: denies: nausea, vomiting, abdominal pain, diarrhea - Medication Medications: Active Medications Generic Name Dose Route Start Last Admin Trade Name Freq PRN Reason Stop Dose Admin Acetaminophen 650 mg 08/24/19 20:02 08/27/19 08:44 Tylenol PO 650 mg Q4H PRN Administration Headache/Fever/Mild Pain (1-3) Albuterol/Ipratropium 3 ml 08/25/19 01:00 08/27/19 07:21 Duoneb NEB 3 ml [id number] REJI Administration Amlodipine Besylate 5 mg 08/27/19 09:00 08/27/19 08:48 Norvasc PO 5 mg DAILY REJI Administration Carvedilol 12.5 mg 08/26/19 21:00 08/27/19 08:46 Coreg PO 12.5 mg BID REJI Administration Clopidogrel Bisulfate 75 mg 08/25/19 09:00 08/27/19 08:47 Plavix PO 75 mg DAILY REJI Administration Fluoxetine HCl 40 mg 08/25/19 09:00 08/27/19 08:47 Prozac PO 40 mg DAILY REJI Administration Guaifenesin 600 mg 08/24/19 21:00 08/27/19 08:46 Mucinex PO 600 mg Q12HR REJI Administration Cefepime HCl 1 gm/ Sodium 100 mls @ 200 mls/hr 08/25/19 14:00 08/27/19 06:01 Chloride IVPB 100 mls Q8HR REJI Administration Metronidazole 500 mg/ Device 100 mls @ 100 mls/hr 08/25/19 14:00 08/27/19 06: 02 IVPB 100 mls Q8HR REJI Administration Vancomycin HCl 750 mg/ Sodium 250 mls @ 250 mls/hr 08/27/19 09:00 08/27/19 09 :07 Chloride IVPB 250 mls 0900,2100 REJI Administration Lorazepam 0.25 mg 08/25/19 22:25 08/26/19 20:21 Ativan SLOW IVP 0.25 mg Q6H PRN Administration Anxiety/Agitation Losartan Potassium 100 mg 08/27/19 09:00 08/27/19 08:44 Cozaar PO 100 mg DAILY REJI Administration Mometasone Furoate/Formoterol Fumar 2 puff 08/25/19 06:30 08/27/19 07:24 Dulera 200 Mcg/5 Mcg Inhaler INH Not Given BID-RT REJI Montelukast Sodium 10 mg 08/24/19 21:00 08/26/19 20:19 Singulair PO 10 mg HS REJI Administration Quetiapine Fumarate 25 mg 08/24/19 21:45 08/26/19 21:35 Seroquel PO 25 mg BIDPRN PRN Administration Agitation Rivaroxaban 2.5 mg 08/25/19 08:00 08/27/19 08:48 Xarelto PO 2.5 mg BID-WM REJI Administration Silver Sulfadiazine 0 gm 08/25/19 09:00 08/27/19 07:29 Silver Sulfadiazine TP Not Given DAILY REJI - Exam General Appearance: NAD, awake alert General - other findings: pleasantly confused Eye: PERRL, anicteric sclera ENT: normocephalic atraumatic, no oropharyngeal lesions Neck: supple, no JVD Heart: RRR, no murmur, no gallops, no rubs Respiratory: CTAB, no wheezes, no rales, no ronchi Gastrointestinal: soft, non-tender, non-distended, normal bowel sounds Extremities: no cyanosis, no clubbing, no edema Skin: normal turgor, no lesions, no rashes Neurological: cranial nerve grossly intact, normal sensation to touch, no focal deficits, no new deficit Musculoskeletal: normal tone, normal strength, no muscle wasting Musculoskeletal - other findings: necrosis of LLE stump. Also skin ulcer on left thigh slightly necrotic Psychiatric: normal affect, normal behavior, A&O x 3, oriented to place, oriented to time Hosp A/P - Plan Arterial doppler 08/02: diffuse plaque in femoral and popliteal arteries. Decreased monophasic phlow proximal to mid anterior tibial artery UA 08/19: moderate blood with 30 grams of protein Chest X ray 08/24: no acute disease Left foot xray 08/13: postop changes with amputation of remaining metatarsal. N CT head 08/24: abnormal density within left CP angle. MRI recommended CTA 08/24: diffuse atherosclerotic disease with multifocal areas of mild and atherosclerotic irregularity of each common femoral artery and superficial femoral artery with moderate degrees of narrowing at each superficial femoral artery. Extensive below the knee atherosclerotic vascular calcifications. Occluded graft extending from left popliteal artery to level of the foot and into arch of foot which is occluded. Suggested bypass graft at level of proximal popliteal artery to level of foot is patent. Hysterectomy. Multiple compression fractures involving all of lumbar vertebral bodies. Bone biopsy 08/13: acute osteomyelitis. Skin and soft tissue with gangrenous necrosis and acute inflammation This is a 74 year old female with PAD s/p transmetatarsal amputation of left foot presenting with persistent non-healing wound on left foot and left chaparro. Also has acute encephalopathy #Left foot osteomyelitis s/p mid foot amputation #Severe PAD s/p anterior tibial bypass left leg plus stent placement - patient had bone biopsy done of amputation on 08/25 which shows acute osteomyelitis. Blood cultures preliminarily negative - continue cefepime and flagyl, WBC improving to 10.9 - CT abdominal aortic run off shows occluded graft to arch of foot and one patent graft. Plan is for BKA however unable to get consent from daughter since she is [place] the [place]. May not happen until Monday Acute encephalopathy - improving - possibly from delirium. UA negative,. CT head negative. - continue to monitor - unclear if can do MRI brain due to stent Leukocytosis - improving, continue cefepime and flagyl - chest Xray negative - UA negative - blood cultures negative Hypokalemia - potassium 3.1, give 60 meq potassium and recheck #Peripheral Arterial Disease #Possible afib? - was on diltiazem previously and discontinued at [facility] - continue aspirin and plavix - xarelto on [place] Anemia - Hb 9.4. Stable, Continue to monitor - had low iron sat of 9%, iron level 20 and TIBC 233 at [facility] Ovarian cyst - 2.6 cm on CTA. Outpatient follow up. Depression - continue prozac Hypertension - continue losartan and coreg Multiple compression fractures - noted on CT scan. Old per daughter, patient denies back pain Disposition: patient needs amputation eventually when able to get consent Code status: full code
[2019-08-27] MEDS ORDERED: Potassium Chloride 20 MEQ TAB PO SCH (16:30)
--- NOTE | 2019-08-27 17:19 | PRG ---
DATE OF SERVICE: 08/27/2019 Ms. Hoff is continued to have difficulties with her mental status and is unable to have any sort of coherent conversation. I met with her boyfriend, James, today. He states her power of attorney at law is her daughter, who is on a cruise, and is unable to be contacted. We had a discussion regarding her left leg. It has continued to suffer from lack of blood flow. There is gangrene affecting her distal leg and the other incisions from her previous surgery. I have recommended that she have an above-knee amputation. He is in agreement. Since we cannot get in contact with her power of attorney at law, we are going to have an emergency consent performed. Job ID: [id number]
[2019-08-27] MEDS: Montelukast Sodium 10 mg Tablet PO SCH (20:11)
[2019-08-27 21:36] LABS: Potassium 3.4 mmol/L (3.5-5.1)
[2019-08-28] MEDS: Acetaminophen 325 MG TAB PO PRN ×2 (00:59→04:40)
[2019-08-28] MEDS: Cefepime 1 GM in Sodium Chloride 0.9% 100 ML IVPB SCH ×3 (05:16→21:36)
[2019-08-28] MEDS: metroNIDAZOLE 500 MG in Premix Bag 1 BAG IVPB SCH ×3 (05:35→23:09)
[2019-08-28 07:06] LABS: Mean Corpuscular HGB CONC 33.2 g/dL (32.0-36.0); Mean Corpuscular Hemoglobin 30.9 pg (27.0-31.0); Mean Corpuscular Volume 93.3 fL (78.0-98.0); Mean Platelet Volume 6.4 fL (7.4-10.4); Platelet Count 514 thou/uL (130-400); RBC Distribution Width 12.4 % (11.5-14.5); White Blood Cell (WBC) Count 12.9 thou/uL (4.8-10.8)
[2019-08-28] MEDS: Mometasone/Formoterol 120 PUFF INHALER INH SCH ×2 (07:09→18:49)
[2019-08-28 07:31] LABS: Anion Gap 11 mmol/L (10-20); BUN (Urea Nitrogen) 14 mg/dL (9.8-20.1); Calc. Creatinine Clearance 41 mL/min (70-130); Calcium 8.4 mg/dL (7.8-10.44); Carbon Dioxide 20 mmol/L (23-31); Chloride 112 mmol/L (98-107); Estimated GFR-MDRD 51; Glucose 98 mg/dL (83-110); Potassium 3.4 mmol/L (3.5-5.1); Sodium 140 mmol/L (136-145)
[2019-08-28] MEDS: Amlodipine 5 MG TAB PO SCH (07:56)
[2019-08-28] MEDS: Losartan 25 MG TAB PO SCH (07:56)
[2019-08-28] MEDS: Carvedilol 6.25 MG TAB PO SCH ×2 (07:57→20:27)
[2019-08-28] MEDS: Clopidogrel Bisulfate 75 MG TAB PO SCH (07:57)
[2019-08-28] MEDS: FLUoxetine HCl 20 MG CAP PO SCH (07:57)
[2019-08-28] MEDS: guaiFENesin ER 600 MG TAB PO SCH ×2 (07:58→20:27)
[2019-08-28] MEDS: Silver Sulfadiazine 1% Cream 50 GM TUBE TP SCH (07:58)
[2019-08-28] MEDS: Vancomycin HCl 750 MG in Sodium Chloride 0.9% 250 ML 250 ML IVPB SCH ×2 (07:59→20:27)
[2019-08-28 08:58] LABS: Vancomycin, Trough 22.8 ug/mL
[2019-08-28] MEDS ORDERED: Dexamethasone 20 MG/5 ML VIAL ONE (10:05)
[2019-08-28] MEDS ORDERED: Glycopyrrolate 0.2 MG/ML 5 ML SYRINGE ONE (10:05)
[2019-08-28] MEDS ORDERED: PROPOFOL 200 MG/20 ML VIAL ONE (10:05)
[2019-08-28] MEDS ORDERED: Rocuronium Bromide 10 MG/ML (10ML VIAL) ONE (10:05)
[2019-08-28] MEDS ORDERED: Bupivacaine HCl 0.5%/Epinephrine 1:200,000/PF 30 ml Vial ONE (10:05)
[2019-08-28] MEDS ORDERED: Midazolam HCl 2 mg/2 ml Vial ONE (11:01)
[2019-08-28] MEDS ORDERED: Fentanyl 100 MCG/2 ML VIAL ONE ×2 (11:01→13:17)
[2019-08-28] MEDS ORDERED: Dexamethasone 4 mg/ml Vial ONE (11:24)
[2019-08-28] MEDS ORDERED: Ondansetron HCl/PF 4 MG/2 ML Vial IVP PRN (11:52)
[2019-08-28] MEDS ORDERED: Potassium Chloride 20 MEQ TAB PO SCH (12:00)
--- NOTE | 2019-08-28 13:41 | PQF ---
DATE: 08-28-19 ATTN: DR. GOOD BE Please exercise your independent, professional judgment in responding to the clarification form. Clinical indicators are provided on the bottom of this form for your review Please check appropriate box(es): [ ] Sepsis due to: (gangrene affecting her distal leg) ___ [ ] Severe sepsis with acute organ dysfunction of: (Examples: respiratory failure, encephalopathy, acute kidney failure, other) [ X] Localized infection without sepsis [ ] Other diagnosis [ ] Unable to determine In addition, please specify: Present on Admission (POA): [ X ] Yes [ ] No [ ] Unable to determine For continuity of documentation, please document condition throughout progress notes and discharge summary. Thank You. CLINICAL INDICATORS - SIGNS / SYMPTOMS / LABS / RESULTS AND LOCATION IN MR: 08-27-19 DR. KAMARA: THERE IS GANGRENE AFFECTING HER DISTAL LEG AND THE OTHER INCISIONS FROM HER PREVIOUS SURGERY. 08-27-19 DR. GOOD BE: PAD S/P TRANSMETATARSAL AMPUTATION OF L FOOT PRESENTING WITH PERSISTENT NON HEALING WOUND ON L FOOT AND L VARGAS. ALSO HAS ACUTE ENCEPHALOPATHY WBC: 08-24-19: 13.7 08-25-19: 14.1 08-26-19: 13.4 08-27-19: 10.9 08-28-19: 12.9 C-REACTIVE PROTEIN: 08-24-19: 20.32 RISK FACTORS / RESULTS AND LOCATION IN MR: 08-27-19 DR. GOOD BE: PAD S/P TRANSMETATARSAL AMPUTATION OF L FOOT PRESENTING WITH PERSISTENT NON HEALING WOUND ON L FOOT AND L VARGAS. ALSO HAS ACUTE ENCEPHALOPATHY TREATMENTS / RESULTS AND LOCATION IN MR: MAR: 08-25-19: CEFEPIME IV, FLAGYL IV, VANCOMYCIN IV (This form is maintained as a part of the permanent medical record) 2014 [employer]. All Rights Reserved DENYS [email or web address] Office: [phone] [facility]
--- NOTE | 2019-08-28 13:58 | PQF ---
DATE: 08-28-19 ATTN: DR. GOOD BE Please exercise your independent, professional judgment in responding to the clarification form. Clinical indicators are provided on the bottom of this form for your review Please check appropriate box(s): [ ] Encephalopathy: Type: [ ] Acute [X ] Subacute [ ] Chronic Etiology: [ X] Metabolic [ ] Toxic [ ] Other (please specify) [ ] Transient Alteration of Awareness [ ] Other diagnosis [ ] Unable to determine In addition, please specify: Present on Admission (POA): [ X] Yes [ ] No [ ] Unable to determine For continuity of documentation, please document condition throughout progress notes and discharge summary. Thank You. CLINICAL INDICATORS - SIGNS / SYMPTOMS / LABS / RESULTS AND LOCATION IN EMR: ER NOTES 08-28-19: WOUND EVAL, FOOT WOUND S/P AMPUTATION, PATIENT HAS HAD AMS SINCE LEAVING THE HOSPITAL ER DX 08-28-19: COPD EXACERBATION, L FOOT POST OP INFECTION AND ISCHEMIA H&P 08-24-19: ULCER ON L CALF, ENCEPHALOPATHY CONSULT NOTE DR. KAMARA 08-27-19: MS. ESPINOSA IS CONTINUED TO HAVE DIFFICULTIES WITH HER MENTAL STATUS AND IS UNABLE TO HAVE ANY SORT OF COHERENT CONVERSATION. RISK FACTORS / RESULTS AND LOCATION IN EMR: H&P 08-24-19: ULCER ON L CALF, ENCEPHALOPATHY ER NOTES 08-24-19: PATIENT HAS HAD AMS SINCE LEAVING THE HOSPITAL YESTERDAY TREATMENTS / RESULTS AND LOCATION IN EMR: MAR: 08-25-19: CEFEPIME IV, FLAGYL IV, VANCOMYCIN IV (This form is maintained as a part of the permanent medical record) 2014 [employer] All Rights Reserved DENYS [email or web address] Office: [phone] [facility]
[2019-08-28] MEDS ORDERED: Fentanyl 100 MCG/2 ML VIAL SLOW IVP PRN (14:28)
--- NOTE | 2019-08-28 14:48 | OP ---
DATE OF PROCEDURE: 08/28/2019 PREOPERATIVE DIAGNOSIS: Gangrene of the left lower extremity, status post rescue procedure in [place]. POSTOPERATIVE DIAGNOSIS: Gangrene of the left lower extremity, status post rescue procedure in [place]. PROCEDURE PERFORMED: Left above-knee amputation. ANESTHESIA: General endotracheal. ESTIMATED BLOOD LOSS: Less than 100. DRAINS: None. SPECIMENS: Left leg. DESCRIPTION OF PROCEDURE: After consent was obtained from two physicians as the family's [id number] was unavailable and the patient could not give consent, the patient was brought to the operating room. She was placed under general anesthesia by Dr. Hilliard. Left leg was prepped and draped in usual sterile fashion. A fishmouth skin incision was made above the knee. Dissection to the fascia was obtained with electrocautery. The periosteum was elevated off the femur and it was divided with Gigli saw. Superficial femoral artery was divided between ties. Popliteal vein was divided between ties. Amputation was completed posteriorly with electrocautery. Wound was copiously irrigated. Hemostasis was ensured. Femoral nerve was stripped proximally, divided, and tied. Fascia was reapproximated with #0 Vicryl in interrupted fashion. A layered closure was then performed with skin clips for the skin. A fluff dressing was applied. The patient tolerated the procedure well, was transferred to the recovery room and then back to her room in stable condition. Job ID: [id number]
--- NOTE | 2019-08-28 17:10 | PDOC.HOSPP ---
- Subjective Encounter Date: 08/28/19 Encounter Time: 17:08 Subjective: The patient is s/p left above the knee amputation today. She says she is having pain from surgery in her left leg. She denies cramping or tingling. Patient is oriented to the month, states the year is 2009. She says "I was confused yesterday." - Objective Vital Signs & Weight: Vital Signs (12 hours) Temp Pulse Resp BP BP BP Pulse Ox 08/28/19 15:59 98.8 F 89 20 162/97 H 96 08/28/19 15:51 98.2 F 88 20 124/71 94 L 08/28/19 14:15 98.6 F 77 18 153/79 H 95 08/28/19 08:00 96 08/28/19 07:57 142/92 H 08/28/19 07:56 80 08/28/19 07:25 98.8 F 80 20 148/92 H 96 08/28/19 07:12 89 16 96 08/28/19 07:09 89 16 98 Weight Admit Weight 119 lb 14.4 oz Weight 119 lb 14.4 oz Result Diagrams: 08/28/19 06:09 08/28/19 06:09 Hospitalist ROS - Review of Systems Constitutional: denies: fever, chills Musculoskeletal: reports: leg pain - Medication Medications: Active Medications Generic Name Dose Route Start Last Admin Trade Name Freq PRN Reason Stop Dose Admin Acetaminophen 650 mg 08/24/19 20:02 08/28/19 04:40 Tylenol PO 650 mg Q4H PRN Administration Headache/Fever/Mild Pain (1-3) Albuterol/Ipratropium 3 ml 08/25/19 01:00 08/28/19 12:37 Duoneb NEB Not Given [id number] REJI Amlodipine Besylate 5 mg 08/27/19 09:00 08/28/19 07:56 Norvasc PO 5 mg DAILY REJI Administration Carvedilol 12.5 mg 08/26/19 21:00 08/28/19 07:57 Coreg PO 12.5 mg BID REJI Administration Clopidogrel Bisulfate 75 mg 08/25/19 09:00 08/28/19 07:57 Plavix PO 75 mg DAILY REJI Administration Fluoxetine HCl 40 mg 08/25/19 09:00 08/28/19 07:57 Prozac PO 40 mg DAILY REJI Administration Guaifenesin 600 mg 08/24/19 21:00 08/28/19 07:58 Mucinex PO 600 mg Q12HR REJI Administration Cefepime HCl 1 gm/ Sodium 100 mls @ 200 mls/hr 08/25/19 14:00 08/28/19 14:18 Chloride IVPB 100 mls Q8HR REJI Administration Metronidazole 500 mg/ Device 100 mls @ 100 mls/hr 08/25/19 14:00 08/28/19 14: 18 IVPB 100 mls Q8HR REJI Administration Lorazepam 0.25 mg 08/25/19 22:25 08/26/19 20:21 Ativan SLOW IVP 0.25 mg Q6H PRN Administration Anxiety/Agitation Losartan Potassium 100 mg 08/27/19 09:00 08/28/19 07:56 Cozaar PO 100 mg DAILY REJI Administration Mometasone Furoate/Formoterol Fumar 2 puff 08/25/19 06:30 08/28/19 07:09 Dulera 200 Mcg/5 Mcg Inhaler INH 2 puff BID-RT REJI Administration Montelukast Sodium 10 mg 08/24/19 21:00 08/27/19 20:11 Singulair PO 10 mg HS REJI Administration Quetiapine Fumarate 25 mg 08/24/19 21:45 08/27/19 14:14 Seroquel PO 25 mg BIDPRN PRN Administration Agitation Silver Sulfadiazine 0 gm 08/25/19 09:00 08/28/19 07:58 Silver Sulfadiazine TP 1 applic DAILY REJI Administration - Exam General Appearance: NAD, awake alert Eye: PERRL, anicteric sclera ENT: normocephalic atraumatic, no oropharyngeal lesions Neck: supple, symmetric, no JVD, no thyromegaly Heart: RRR, no murmur, no gallops, no rubs, normal peripheral pulses Respiratory: CTAB, no wheezes, no rales, no ronchi Gastrointestinal: soft, non-tender, non-distended, normal bowel sounds, no palpable masses, no hepatomegaly, no splenomegaly Extremities: no cyanosis, no clubbing, no edema Skin: normal turgor, no lesions, no rashes Neurological: cranial nerve grossly intact, normal sensation to touch, no focal deficits, no new deficit Musculoskeletal: normal tone, normal strength, no muscle wasting Psychiatric: normal affect, normal behavior, A&O x 3, oriented to person, oriented to place Hosp A/P - Plan Arterial doppler 08/02: diffuse plaque in femoral and popliteal arteries. Decreased monophasic phlow proximal to mid anterior tibial artery UA 08/19: moderate blood with 30 grams of protein Chest X ray 08/24: no acute disease Left foot xray 08/13: postop changes with amputation of remaining metatarsal. N CT head 08/24: abnormal density within left CP angle. MRI recommended CTA 08/24: diffuse atherosclerotic disease with multifocal areas of mild and atherosclerotic irregularity of each common femoral artery and superficial femoral artery with moderate degrees of narrowing at each superficial femoral artery. Extensive below the knee atherosclerotic vascular calcifications. Occluded graft extending from left popliteal artery to level of the foot and into arch of foot which is occluded. Suggested bypass graft at level of proximal popliteal artery to level of foot is patent. Hysterectomy. Multiple compression fractures involving all of lumbar vertebral bodies. Bone biopsy 08/13: acute osteomyelitis. Skin and soft tissue with gangrenous necrosis and acute inflammation This is a 74 year old female with PAD s/p transmetatarsal amputation of left foot presenting with persistent non-healing wound on left foot and left chaparro. Also has acute encephalopathy #Left foot osteomyelitis s/p mid foot amputation in [place]. She is s/p AKA today #Severe PAD s/p anterior tibial bypass left leg plus stent placement - patient had bone biopsy done of amputation on 08/25 which shows acute osteomyelitis. Blood cultures preliminarily negative - continue cefepime and flagyl, WBC up to 12.9 - CT abdominal aortic run off shows occluded graft to arch of foot and one patent graft. - she is s/p above the knee amputation today - IV tylenol prn for pain. IV fentanyl prn for severe pain Acute encephalopathy - improving - possibly from delirium. UA negative,. CT head negative. - more oriented today - unclear if can do MRI brain due to stent Leukocytosis -worsening to 12.9. She is s/p AKA today. Will monitor. Continue cefepime and flagyl - chest Xray negative - UA negative - blood cultures negative Hypokalemia - potassium 3.4, s/p 40 meq potassium. Will recheck tonight #Peripheral Arterial Disease #Possible afib? - was on diltiazem previously and discontinued at [facility] - continue aspirin and plavix - xarelto on hold Anemia - Hb 9.4. Stable, Continue to monitor - had low iron sat of 9%, iron level 20 and TIBC 233 at [facility] Ovarian cyst - 2.6 cm on CTA. Outpatient follow up. Depression - continue prozac Hypertension - continue losartan and coreg Multiple compression fractures - noted on CT scan. Old per daughter, patient denies back pain Disposition: s/p above the knee amputation Code status: full code
[2019-08-28 20:23] LABS: Vancomycin, Trough 15.2 ug/mL
[2019-08-28] MEDS: Montelukast Sodium 10 mg Tablet PO SCH (20:27)
[2019-08-28] MEDS ORDERED: Vancomycin HCl 500 MG in Sodium Chloride 0.9% 100 ML IVPB SCH (21:00)
[2019-08-28] MEDS: Acetaminophen 1,000 MG in Premix Bag 1 BAG IVPB PRN (21:21)
[2019-08-29] MEDS: Cefepime 1 GM in Sodium Chloride 0.9% 100 ML IVPB SCH ×2 (05:21→13:22)
[2019-08-29] MEDS: metroNIDAZOLE 500 MG in Premix Bag 1 BAG IVPB SCH ×3 (05:58→23:29)
[2019-08-29] MEDS: Acetaminophen 325 MG TAB PO PRN ×2 (06:13→20:40)
[2019-08-29 06:25] LABS: Hemoglobin 9.7 g/dL (12.0-16.0); Mean Corpuscular HGB CONC 31.8 g/dL (32.0-36.0); Mean Corpuscular Hemoglobin 29.8 pg (27.0-31.0); Mean Corpuscular Volume 93.6 fL (78.0-98.0); Platelet Count 486 thou/uL (130-400); RBC Distribution Width 12.8 % (11.5-14.5); Red Blood Cell (RBC) Count 3.25 mill/uL (4.20-5.40); White Blood Cell (WBC) Count 18.2 thou/uL (4.8-10.8)
[2019-08-29] MEDS: Mometasone/Formoterol 120 PUFF INHALER INH SCH ×2 (06:27→18:59)
[2019-08-29 06:49] LABS: Anion Gap 15 mmol/L (10-20); BUN (Urea Nitrogen) 13 mg/dL (9.8-20.1); Calc. Creatinine Clearance 41 mL/min (70-130); Calcium 8.2 mg/dL (7.8-10.44); Carbon Dioxide 16 mmol/L (23-31); Chloride 110 mmol/L (98-107); Estimated GFR-MDRD 51; Glucose 126 mg/dL (83-110); Potassium 3.8 mmol/L (3.5-5.1); Sodium 137 mmol/L (136-145)
[2019-08-29] MEDS: Amlodipine 5 MG TAB PO SCH (08:11)
[2019-08-29] MEDS: FLUoxetine HCl 20 MG CAP PO SCH (08:11)
[2019-08-29] MEDS: Losartan 25 MG TAB PO SCH (08:11)
[2019-08-29] MEDS: Carvedilol 6.25 MG TAB PO SCH ×2 (08:11→20:40)
[2019-08-29] MEDS: Clopidogrel Bisulfate 75 MG TAB PO SCH (08:12)
[2019-08-29] MEDS: guaiFENesin ER 600 MG TAB PO SCH ×2 (08:12→20:40)
[2019-08-29] MEDS: Vancomycin HCl 750 MG in Sodium Chloride 0.9% 250 ML 250 ML IVPB SCH ×2 (08:12→20:50)
[2019-08-29] MEDS: Silver Sulfadiazine 1% Cream 50 GM TUBE TP SCH (08:13)
[2019-08-29] MEDS: Acetaminophen 1,000 MG in Premix Bag 1 BAG IVPB PRN (12:46)
--- NOTE | 2019-08-29 15:55 | PDOC.HOSPP ---
- Subjective Encounter Date: 08/29/19 Encounter Time: 13:00 Subjective: The patient states that her pain is better and controlled with tylenol. She is not interested in receiving any narcotics because it makes her hallucinate and loopy. Patient's mental status back to normal. SHe reports being depressed that her leg is amputated. She is sad that she can't go fishing like she used to. Has suicidal thoughts and said if he she could jump out the window she would. She is interested in seeing a counselor. - Objective Vital Signs & Weight: Vital Signs (12 hours) Temp Pulse Resp BP BP BP Pulse Ox 08/29/19 12:39 78 16 90 L 08/29/19 08:11 75 145/78 H 08/29/19 08:00 100 08/29/19 07:21 97.7 F 75 20 137/86 100 08/29/19 04:00 99.2 F 82 16 174/65 H 96 Weight Admit Weight 119 lb 14.4 oz Weight 119 lb 14.4 oz I&O: 08/28/19 08/29/19 08/30/19 06:59 06:59 06:59 Intake Total 240 Balance 240 Result Diagrams: 08/29/19 05:50 08/29/19 05:50 Hospitalist ROS - Review of Systems Constitutional: denies: fever, chills Respiratory: denies: cough, dry, shortness of breath - Medication Medications: Active Medications Generic Name Dose Route Start Last Admin Trade Name Freq PRN Reason Stop Dose Admin Acetaminophen 650 mg 08/24/19 20:02 08/29/19 06:13 Tylenol PO 650 mg Q4H PRN Administration Headache/Fever/Mild Pain (1-3) Albuterol/Ipratropium 3 ml 08/25/19 01:00 08/29/19 12:39 Duoneb NEB 3 ml [id number] REJI Administration Amlodipine Besylate 5 mg 08/27/19 09:00 08/29/19 08:11 Norvasc PO 5 mg DAILY REJI Administration Carvedilol 12.5 mg 08/26/19 21:00 08/29/19 08:11 Coreg PO 12.5 mg BID REJI Administration Clopidogrel Bisulfate 75 mg 08/25/19 09:00 08/29/19 08:12 Plavix PO 75 mg DAILY REJI Administration Fluoxetine HCl 40 mg 08/25/19 09:00 08/29/19 08:11 Prozac PO 40 mg DAILY REJI Administration Guaifenesin 600 mg 08/24/19 21:00 08/29/19 08:12 Mucinex PO 600 mg Q12HR REJI Administration Cefepime HCl 1 gm/ Sodium 100 mls @ 200 mls/hr 08/25/19 14:00 08/29/19 13:22 Chloride IVPB 100 mls Q8HR REJI Administration Metronidazole 500 mg/ Device 100 mls @ 100 mls/hr 08/25/19 14:00 08/29/19 13: 25 IVPB 100 mls Q8HR REJI Administration Vancomycin HCl 750 mg/ Sodium 250 mls @ 250 mls/hr 08/28/19 21:00 08/29/19 08 :12 Chloride IVPB 250 mls 0900,2100 REJI Administration Acetaminophen 1,000 mg/ Device 100 mls @ 400 mls/hr 08/28/19 17:13 08/29/19 12:46 IVPB 08/29/19 17:14 100 mls Q6H PRN Administration Fever/Mild Pain Lorazepam 0.25 mg 08/25/19 22:25 08/26/19 20:21 Ativan SLOW IVP 0.25 mg Q6H PRN Administration Anxiety/Agitation Losartan Potassium 100 mg 08/27/19 09:00 08/29/19 08:11 Cozaar PO 100 mg DAILY REJI Administration Mometasone Furoate/Formoterol Fumar 2 puff 08/25/19 06:30 08/29/19 06:27 Dulera 200 Mcg/5 Mcg Inhaler INH Not Given BID-RT REJI Montelukast Sodium 10 mg 08/24/19 21:00 08/28/19 20:27 Singulair PO 10 mg HS REJI Administration Quetiapine Fumarate 25 mg 08/24/19 21:45 08/28/19 23:48 Seroquel PO 25 mg BIDPRN PRN Administration Agitation Silver Sulfadiazine 0 gm 08/25/19 09:00 08/29/19 08:13 Silver Sulfadiazine TP Not Given DAILY REJI - Exam General Appearance: NAD, awake alert Eye: PERRL, anicteric sclera ENT: normocephalic atraumatic, no oropharyngeal lesions Neck: supple, symmetric, no JVD, no thyromegaly Heart: RRR, no murmur, no gallops, no rubs Respiratory: CTAB, no wheezes, no rales, no ronchi Gastrointestinal: soft, non-tender, non-distended, normal bowel sounds Extremities: no cyanosis, no clubbing Extremities - other findings: s/p LEFt AKA, no signs of infection around the stump Skin: normal turgor, no lesions, no rashes Neurological: cranial nerve grossly intact, normal sensation to touch, no focal deficits, no new deficit Musculoskeletal: normal tone, normal strength, no muscle wasting Psychiatric: normal affect, normal behavior, A&O x 3, oriented to person Hosp A/P - Plan Arterial doppler 08/02: diffuse plaque in femoral and popliteal arteries. Decreased monophasic phlow proximal to mid anterior tibial artery UA 08/19: moderate blood with 30 grams of protein Chest X ray 08/24: no acute disease Left foot xray 08/13: postop changes with amputation of remaining metatarsal. N CT head 08/24: abnormal density within left CP angle. MRI recommended CTA 08/24: diffuse atherosclerotic disease with multifocal areas of mild and atherosclerotic irregularity of each common femoral artery and superficial femoral artery with moderate degrees of narrowing at each superficial femoral artery. Extensive below the knee atherosclerotic vascular calcifications. Occluded graft extending from left popliteal artery to level of the foot and into arch of foot which is occluded. Suggested bypass graft at level of proximal popliteal artery to level of foot is patent. Hysterectomy. Multiple compression fractures involving all of lumbar vertebral bodies. Bone biopsy 08/13: acute osteomyelitis. Skin and soft tissue with gangrenous necrosis and acute inflammation This is a 74 year old female with PAD s/p transmetatarsal amputation of left foot presenting with persistent non-healing wound on left foot and left chaparro. 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 Blood cultures preliminarily negative - continue cefepime and flagyl, WBC up to 18. Appreciate ID recs with regards to whether antibiotics should be changed. No fevers - CT abdominal aortic run off shows occluded graft to arch of foot and one patent graft. She is s/p AKA 08/28 - continue IV tylenol prn for pain, d/c narcotics per patient request Depression with suicidal thoughts - likely adjustment disorder given recent amputation - [facility] consult Leukocytosis -worsening to 18, s/p AKA yesterday. On cefepime and flagyl, appreciate ID recs - chest Xray negative - UA negative - blood cultures negative Acute encephalopathy likely secondary to infection - resolved - UA negative, CT negative - her mental status is now back to normal after her amputation Hypokalemia -resolved #Peripheral Arterial Disease #Possible afib? - was on diltiazem previously and discontinued at [facility] - continue aspirin and plavix - resume xarelto per vascular recs Anemia - Hb 9.4. Stable, Continue to monitor - had low iron sat of 9%, iron level 20 and TIBC 233 at [facility] - check B12 and folate Ovarian cyst - 2.6 cm on CTA. Outpatient follow up. Hypertension - continue losartan and coreg Multiple compression fractures - noted on CT scan. Old per daughter, patient denies back pain Disposition: needs PTOT, likely would be good candidate for inpatient rehab. Psych consul t Code status: full code
--- NOTE | 2019-08-29 16:23 | PRG ---
DATE OF SERVICE: 08/29/2019 SUBJECTIVE: The patient had an AKA amputation and she looks okay. She denies any pain. No shortness of breath. No chest pain. No abdominal pain or diarrhea. No vomiting. Voiding without difficulty. OBJECTIVE: VITAL SIGNS: T-max 99.4, blood pressure 140/70, pulse 75, respirations 16, and O2 saturation 90 to 100. GENERAL: Awake, alert, and oriented. HEENT: Ocular movements conjugate. Conjunctivae are normal. LUNGS: Symmetric. Clear breath sounds. HEART: S1 and S2. Regular rate. No S3 or S4. ABDOMEN: Soft, not distended or tender. No ascites. No bladder distention. EXTREMITIES: Left AKA site dressing not removed. LABORATORY DATA: White cell count is up to 18.2, hemoglobin 9.7, and platelets 46. Creatinine 1.05, which is stable. Microbiology reveal negative blood cultures. RSV type B was detected in the nasopharyngeal swab. ASSESSMENT AND DISCUSSION: Chronic obstructive pulmonary disease, osteoporosis, compression fractures, peripheral vascular disease with failed left-sided femoral tibial bypass and now above-knee amputation. Leukocytosis is probably going to be trending down starting tomorrow. Platelet counts are raised, trending downwards. Once the WBC started trending down, it would be safe to stop antimicrobial therapy. We continue to follow the healing of the above-knee amputation site since she may end up having issues with healing there in the near future. Job ID: [id number]
[2019-08-29] MEDS: traMADol HCl 50 MG TAB PO PRN (17:27)
[2019-08-29 17:52] LABS: Thyroid Stimulating Hormone 0.8529 uIU/mL (0.35-4.94)
[2019-08-29] MEDS: Lorazepam 2 MG/ML VIAL SLOW IVP PRN (18:29)
[2019-08-29] MEDS: Montelukast Sodium 10 mg Tablet PO SCH (20:40)
[2019-08-30] MEDS: Cefepime 1 GM in Sodium Chloride 0.9% 100 ML IVPB SCH ×3 (00:39→07:45)
[2019-08-30] MEDS: Acetaminophen 325 MG TAB PO PRN ×4 (04:00→20:37)
[2019-08-30] MEDS: metroNIDAZOLE 500 MG in Premix Bag 1 BAG IVPB SCH (06:14)
[2019-08-30] MEDS: Mometasone/Formoterol 120 PUFF INHALER INH SCH ×2 (06:23→19:24)
[2019-08-30 06:26] LABS: Anion Gap 10 mmol/L (10-20); BUN (Urea Nitrogen) 12 mg/dL (9.8-20.1); Calc. Creatinine Clearance 48 mL/min (70-130); Carbon Dioxide 22 mmol/L (23-31); Chloride 111 mmol/L (98-107); Estimated GFR-MDRD 61; Glucose 94 mg/dL (83-110); Potassium 3.1 mmol/L (3.5-5.1); Sodium 140 mmol/L (136-145)
[2019-08-30 06:27] LABS: Hemoglobin 7.9 g/dL (12.0-16.0); Mean Corpuscular Hemoglobin 30.6 pg (27.0-31.0); Mean Corpuscular Volume 92.8 fL (78.0-98.0); Mean Platelet Volume 6.4 fL (7.4-10.4); Platelet Count 574 thou/uL (130-400); RBC Distribution Width 12.5 % (11.5-14.5); Red Blood Cell (RBC) Count 2.59 mill/uL (4.20-5.40); White Blood Cell (WBC) Count 11.3 thou/uL (4.8-10.8)
[2019-08-30] MEDS: Carvedilol 6.25 MG TAB PO SCH ×2 (07:46→20:37)
[2019-08-30] MEDS: FLUoxetine HCl 20 MG CAP PO SCH (07:47)
[2019-08-30] MEDS: Clopidogrel Bisulfate 75 MG TAB PO SCH (07:47)
[2019-08-30] MEDS: guaiFENesin ER 600 MG TAB PO SCH ×2 (07:47→20:37)
[2019-08-30] MEDS: Amlodipine 5 MG TAB PO SCH (07:48)
[2019-08-30] MEDS: Vancomycin HCl 750 MG in Sodium Chloride 0.9% 250 ML 250 ML IVPB SCH (07:48)
[2019-08-30] MEDS: Losartan 25 MG TAB PO SCH (07:48)
[2019-08-30] MEDS: Silver Sulfadiazine 1% Cream 50 GM TUBE TP SCH (07:57)
[2019-08-30 08:12] LABS: Vancomycin, Trough 22.3 ug/mL
[2019-08-30] MEDS ORDERED: Potassium Chloride 20 MEQ TAB PO SCH (10:30)
[2019-08-30] MEDS: traMADol HCl 50 MG TAB PO PRN (13:38)
--- NOTE | 2019-08-30 17:46 | PDOC.HOSPP ---
- Subjective Encounter Date: 08/30/19 Encounter Time: 17:44 Subjective: The patient says her pain is well controlled. Currently she is feeling overwhelmed with everything that has happened. She says she feels she was just in a "war zone." She doesn't feel like eating, drinking or doing anything, states " I just don't care." She is still upset about her leg being amputated and doesn't appreciate the quality of life it has to offer. SHe is happy that she has a sitter, otherwise she sometimes have negative thoughts of wishing things would just end. [facility] consult pending. She was told she needs rehab, but doesn't want to, just wants to go home. - Objective Vital Signs & Weight: Vital Signs (12 hours) Temp Pulse Resp BP BP BP Pulse Ox 08/30/19 15:24 98.5 F 77 17 122/72 97 08/30/19 12:44 68 18 97 08/30/19 11:31 97.5 F L 68 19 100/56 L 97 08/30/19 08:00 93 L 08/30/19 07:48 80 08/30/19 07:46 152/85 H 08/30/19 07:18 97.4 F L 80 17 131/77 93 L 08/30/19 06:20 84 18 93 L Weight Admit Weight 119 lb 14.4 oz Weight 119 lb 14.4 oz I&O: 08/29/19 08/30/19 08/31/19 06:59 06:59 06:59 Intake Total 1430 480 Balance 1430 480 Result Diagrams: 08/30/19 05:21 08/30/19 05:21 Hospitalist ROS - Review of Systems Constitutional: denies: fever, chills - Medication Medications: Active Medications Generic Name Dose Route Start Last Admin Trade Name Freq PRN Reason Stop Dose Admin Acetaminophen 650 mg 08/24/19 20:02 08/30/19 16:32 Tylenol PO 650 mg Q4H PRN Administration Headache/Fever/Mild Pain (1-3) Albuterol/Ipratropium 3 ml 08/25/19 01:00 08/30/19 12:44 Duoneb NEB 3 ml [id number] REJI Administration Amlodipine Besylate 5 mg 08/27/19 09:00 08/30/19 07:48 Norvasc PO 5 mg DAILY REJI Administration Carvedilol 12.5 mg 08/26/19 21:00 08/30/19 07:46 Coreg PO 12.5 mg BID REJI Administration Clopidogrel Bisulfate 75 mg 08/25/19 09:00 08/30/19 07:47 Plavix PO 75 mg DAILY REJI Administration Fluoxetine HCl 40 mg 08/25/19 09:00 08/30/19 07:47 Prozac PO 40 mg DAILY REJI Administration Guaifenesin 600 mg 08/24/19 21:00 08/30/19 07:47 Mucinex PO 600 mg Q12HR REJI Administration Lorazepam 0.25 mg 08/25/19 22:25 08/29/19 18:29 Ativan SLOW IVP 0.25 mg Q6H PRN Administration Anxiety/Agitation Losartan Potassium 100 mg 08/27/19 09:00 08/30/19 07:48 Cozaar PO 100 mg DAILY REJI Administration Mometasone Furoate/Formoterol Fumar 2 puff 08/25/19 06:30 08/30/19 06:23 Dulera 200 Mcg/5 Mcg Inhaler INH 2 puff BID-RT REJI Administration Montelukast Sodium 10 mg 08/24/19 21:00 08/29/19 20:40 Singulair PO 10 mg HS REJI Administration Ondansetron HCl 4 mg 08/24/19 20:02 08/30/19 11:54 Zofran IVP 4 mg Q6H PRN Administration Nausea/Vomiting Quetiapine Fumarate 25 mg 08/24/19 21:45 08/29/19 20:40 Seroquel PO 25 mg BIDPRN PRN Administration Agitation Silver Sulfadiazine 0 gm 08/25/19 09:00 08/30/19 07:57 Silver Sulfadiazine TP Not Given DAILY [facility] Tramadol HCl 50 mg 08/28/19 14:28 08/30/19 13:38 Ultram PO 50 mg Q6H PRN Administration Moderate Pain (4-6) - Exam General Appearance: NAD, awake alert Eye: PERRL, anicteric sclera ENT: normocephalic atraumatic, no oropharyngeal lesions Neck: supple, symmetric, no JVD Heart: RRR, no murmur, no gallops, no rubs Respiratory: CTAB, no wheezes, no rales, no ronchi Gastrointestinal: soft, non-tender, non-distended, normal bowel sounds Extremities: no cyanosis Extremities - other findings: Left leg stump, no signs of infection. S/p AKA Skin: normal turgor, no lesions, no rashes Neurological: cranial nerve grossly intact, normal sensation to touch, no focal deficits, no new deficit Musculoskeletal: normal tone, normal strength, no muscle wasting Psychiatric: normal affect, normal behavior, A&O x 3, oriented to person Hosp A/P - Plan Arterial doppler 08/02: diffuse plaque in femoral and popliteal arteries. Decreased monophasic phlow proximal to mid anterior tibial artery UA 08/19: moderate blood with 30 grams of protein Chest X ray 08/24: no acute disease Left foot xray 08/13: postop changes with amputation of remaining metatarsal. N CT head 08/24: abnormal density within left CP angle. MRI recommended CTA 08/24: diffuse atherosclerotic disease with multifocal areas of mild and atherosclerotic irregularity of each common femoral artery and superficial femoral artery with moderate degrees of narrowing at each superficial femoral artery. Extensive below the knee atherosclerotic vascular calcifications. Occluded graft extending from left popliteal artery to level of the foot and into arch of foot which is occluded. Suggested bypass graft at level of proximal popliteal artery to level of foot is patent. Hysterectomy. Multiple compression fractures involving all of lumbar vertebral bodies. Bone biopsy 08/13: acute osteomyelitis. Skin and soft tissue with gangrenous necrosis and acute inflammation This is a 74 year old female with PAD s/p transmetatarsal amputation of left foot presenting with persistent non-healing wound on left foot and left chaparro. 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 CT abdominal aortic run off on admission shows occluded graft to arch of foot and one patent graft. She is s/p AKA 08/28. - Blood cultures preliminarily negative - WBC has come down, cefepime and flagyl discontinued per ID - continue IV tylenol prn for pain, d/c narcotics per patient request Depression with suicidal thoughts - likely adjustment disorder given recent amputation - MR consult - appreciate palliative care for emotional support and counseling - continue zoloft 40 mg daily, will add mirtazepine for appetite stimulation Acute encephalopathy likely secondary to infection - resolved - UA negative, CT negative - her mental status is now back to normal after her amputation #Peripheral Arterial Disease #Possible afib? - was on diltiazem previously and discontinued at [facility] - continue aspirin and plavix - will hold xarelto given hemoglobin drop Hypokalemia -resolved Anemia - Hb 7.9. Stable, Continue to monitor - had low iron sat of 9%, iron level 20 and TIBC 233 at [facility] -B12, folate and TSH normal Ovarian cyst - 2.6 cm on CTA. Outpatient follow up. Hypertension - continue losartan and coreg Multiple compression fractures - noted on CT scan. Old per daughter, patient denies back pain Disposition: needs rehab. MR consult for depression, palliative care for emotional support. Code status: full code
[2019-08-30] MEDS: Mirtazapine 15 MG Soltab PO SCH (20:37)
[2019-08-30] MEDS: Montelukast Sodium 10 mg Tablet PO SCH (20:37)
[2019-08-30] MEDS: Lorazepam 2 MG/ML VIAL SLOW IVP PRN (21:50)
[2019-08-31] MEDS: Mometasone/Formoterol 120 PUFF INHALER INH SCH ×2 (06:57→19:12)
[2019-08-31] MEDS: Losartan 25 MG TAB PO SCH (08:46)
[2019-08-31] MEDS: Acetaminophen 325 MG TAB PO PRN ×3 (08:46→20:13)
[2019-08-31] MEDS: Carvedilol 6.25 MG TAB PO SCH ×2 (08:47→20:14)
[2019-08-31] MEDS: guaiFENesin ER 600 MG TAB PO SCH ×2 (08:47→20:14)
[2019-08-31] MEDS: Amlodipine 5 MG TAB PO SCH (08:47)
[2019-08-31] MEDS: FLUoxetine HCl 20 MG CAP PO SCH (08:47)
[2019-08-31] MEDS: Clopidogrel Bisulfate 75 MG TAB PO SCH (08:48)
--- NOTE | 2019-08-31 12:57 | PDOC.HOSPP ---
- Subjective Encounter Date: 08/31/19 Encounter Time: 12:55 Subjective: Doing very well. Mentally in a much better place. Appetite is still a little poor. Modest discomfort to stump. - Objective Vital Signs & Weight: Vital Signs (12 hours) Temp Pulse Resp BP Pulse Ox 08/31/19 07:44 99.9 F H 101 H 18 140/80 95 08/31/19 06:53 90 16 Weight Admit Weight 119 lb 14.4 oz Weight 119 lb 14.4 oz I&O: 08/30/19 08/31/19 09/01/19 06:59 06:59 06:59 Intake Total 1430 720 Balance 1430 720 Result Diagrams: 08/30/19 05:21 08/30/19 05:21 Hospitalist ROS - Medication Medications: Active Medications Generic Name Dose Route Start Last Admin Trade Name Freq PRN Reason Stop Dose Admin Acetaminophen 650 mg 08/24/19 20:02 08/31/19 08:46 Tylenol PO 650 mg Q4H PRN Administration Headache/Fever/Mild Pain (1-3) Albuterol/Ipratropium 3 ml 08/25/19 01:00 08/31/19 06:53 Duoneb NEB 3 ml [id number] REJI Administration Amlodipine Besylate 5 mg 08/27/19 09:00 08/31/19 08:47 Norvasc PO 5 mg DAILY REJI Administration Carvedilol 12.5 mg 08/26/19 21:00 08/31/19 08:47 Coreg PO 12.5 mg BID REJI Administration Clopidogrel Bisulfate 75 mg 08/25/19 09:00 08/31/19 08:48 Plavix PO 75 mg DAILY REJI Administration Fluoxetine HCl 40 mg 08/25/19 09:00 08/31/19 08:47 Prozac PO 40 mg DAILY REJI Administration Guaifenesin 600 mg 08/24/19 21:00 08/31/19 08:47 Mucinex PO Not Given Q12HR REJI Lorazepam 0.25 mg 08/25/19 22:25 08/30/19 21:50 Ativan SLOW IVP 0.25 mg Q6H PRN Administration Anxiety/Agitation Losartan Potassium 100 mg 08/27/19 09:00 08/31/19 08:46 Cozaar PO 100 mg DAILY REJI Administration Mirtazapine 15 mg 08/30/19 21:00 08/30/19 20:37 Remeron Soltab PO 15 mg HS REJI Administration Mometasone Furoate/Formoterol Fumar 2 puff 08/25/19 06:30 08/31/19 06:57 Dulera 200 Mcg/5 Mcg Inhaler INH 2 puff BID-RT REJI Administration Montelukast Sodium 10 mg 08/24/19 21:00 08/30/19 20:37 Singulair PO 10 mg HS REJI Administration Ondansetron HCl 4 mg 08/24/19 20:02 08/30/19 11:54 Zofran IVP 4 mg Q6H PRN Administration Nausea/Vomiting Quetiapine Fumarate 25 mg 08/24/19 21:45 08/30/19 20:37 Seroquel PO 25 mg BIDPRN PRN Administration Agitation Silver Sulfadiazine 0 gm 08/25/19 09:00 08/30/19 07:57 Silver Sulfadiazine TP Not Given DAILY REJI Tramadol HCl 50 mg 08/28/19 14:28 08/30/19 13:38 Ultram PO 50 mg Q6H PRN Administration Moderate Pain (4-6) - Exam General Appearance: NAD, awake alert Heart: RRR, no murmur, no gallops, no rubs, normal peripheral pulses Respiratory: CTAB, no wheezes, no rales, no ronchi, normal chest expansion, no tachypnea, normal percussion Gastrointestinal: soft, non-tender, non-distended, normal bowel sounds, no palpable masses, no hepatomegaly, no splenomegaly, no bruit Extremities: no cyanosis, no clubbing, no edema Extremities - other findings: L AKA stump wrapped. Musculoskeletal: normal tone, normal strength, no muscle wasting Psychiatric: normal affect, normal behavior, A&O x 3 Hosp A/P (1) Osteomyelitis of left foot Code(s): M86.9 - OSTEOMYELITIS, UNSPECIFIED Status: Resolved (2) S/P AKA (above knee amputation) unilateral Code(s): Z89.619 - ACQUIRED ABSENCE OF UNSPECIFIED LEG ABOVE KNEE Status: Acute (3) Adjustment disorder Code(s): F43.20 - ADJUSTMENT DISORDER, UNSPECIFIED Status: Acute (4) Acute metabolic encephalopathy Code(s): G93.41 - METABOLIC ENCEPHALOPATHY Status: Resolved (5) PVD (peripheral vascular disease) Code(s): I73.9 - PERIPHERAL VASCULAR DISEASE, UNSPECIFIED Status: Chronic (6) Hypokalemia Code(s): E87.6 - HYPOKALEMIA Status: Acute (7) Anemia Code(s): D64.9 - ANEMIA, UNSPECIFIED Status: Chronic Qualifiers: Anemia type: iron deficiency (8) HTN (hypertension) Code(s): I10 - ESSENTIAL (PRIMARY) HYPERTENSION Status: Chronic (9) Vertebral compression fracture Code(s): M48.50XA - COLLAPSED VERTEBRA, NEC, SITE UNSP, INIT Status: Chronic (10) Ovarian cyst Code(s): N83.209 - UNSPECIFIED OVARIAN CYST, UNSPECIFIED SIDE Status: Acute - Plan Doing well. Answered all of her questions. Discussed with [facility]. No recommendation for admission to psych facility. Consider outpatient counseling. Rehab pending. Chronic anemia, but worse now. Holding Xarelto and she remains in sinus rhythm. Anemia with hx of iron deficiency. Will heme check stools. Need to make a decision on resuming or continuing to hold the xarelto. Recheck potassium level.
[2019-08-31 13:34] LABS: Anion Gap 13 mmol/L (10-20); BUN (Urea Nitrogen) 10 mg/dL (9.8-20.1); Calc. Creatinine Clearance 38 mL/min (70-130); Calcium 8.6 mg/dL (7.8-10.44); Carbon Dioxide 20 mmol/L (23-31); Chloride 111 mmol/L (98-107); Estimated GFR-MDRD 48; Glucose 121 mg/dL (83-110); Potassium 3.4 mmol/L (3.5-5.1); Sodium 141 mmol/L (136-145)
[2019-08-31] MEDS: Silver Sulfadiazine 1% Cream 50 GM TUBE TP SCH (19:49)
[2019-08-31] MEDS: Mirtazapine 15 MG Soltab PO SCH (20:14)
[2019-08-31] MEDS: Montelukast Sodium 10 mg Tablet PO SCH (20:14)
[2019-09-01 05:31] LABS: Hemoglobin 8.3 g/dL (12.0-16.0)
[2019-09-01 05:52] LABS: Anion Gap 11 mmol/L (10-20); BUN (Urea Nitrogen) 12 mg/dL (9.8-20.1); Calc. Creatinine Clearance 41 mL/min (70-130); Calcium 8.5 mg/dL (7.8-10.44); Carbon Dioxide 22 mmol/L (23-31); Chloride 113 mmol/L (98-107); Estimated GFR-MDRD 51; Glucose 108 mg/dL (83-110); Potassium 3.3 mmol/L (3.5-5.1); Sodium 143 mmol/L (136-145)
[2019-09-01] MEDS: Mometasone/Formoterol 120 PUFF INHALER INH SCH (06:37)
[2019-09-01 07:54] VITALS: TEMP 99.1
[2019-09-01] MEDS ORDERED: Potassium Chloride 20 MEQ TAB PO SCH (08:15)
[2019-09-01] MEDS: FLUoxetine HCl 20 MG CAP PO SCH (08:43)
[2019-09-01] MEDS: Clopidogrel Bisulfate 75 MG TAB PO SCH (08:44)
[2019-09-01] MEDS: Losartan 25 MG TAB PO SCH (08:44)
[2019-09-01] MEDS: Amlodipine 5 MG TAB PO SCH (08:44)
[2019-09-01] MEDS: Carvedilol 6.25 MG TAB PO SCH (08:44)
[2019-09-01] MEDS: Silver Sulfadiazine 1% Cream 50 GM TUBE TP SCH (08:45)
[2019-09-01] MEDS: guaiFENesin ER 600 MG TAB PO SCH (08:45)
[2019-09-01 08:46] VITALS: BP 165/90
[2019-09-01] MEDS: Acetaminophen 325 MG TAB PO PRN (08:59)
--- NOTE | 2019-09-01 15:43 | DIS ---
DATE OF ADMISSION: 08/24/2019 DATE OF DISCHARGE: 09/01/2019 DISCHARGE DIAGNOSES: 1. Left foot osteomyelitis with gangrene. 2. Severe peripheral arterial disease with failed salvage procedure performed in [place] prior to this admission. 3. Acute encephalopathy secondary to infection. 4. Leukocytosis. 5. History of atrial fibrillation. 6. Anemia. 7. Ovarian cyst. 8. Depression. 9. Hypertension. 10. Multiple vertebral compression fractures. HISTORY OF PRESENT ILLNESS: This patient is a 74-year-old female who presented via the emergency department. The patient previously had peripheral vascular disease with attempts at limb salvage procedure and midfoot amputation performed in [place]. The patient subsequently had some encephalopathy that apparently had become worse. She was ultimately discharged from there with the plan to get her home, hoping that her encephalopathy was hospital psychosis and would improve when she got back in a familiar environment. However, she continued to progress. Ultimately, she was supposed to have a wound VAC, which was delayed and her home health nurse found a posterior calf area of necrosis and foul odor. She was subsequently brought to the emergency department here. While here, CTA with runoff showed diffuse atherosclerotic disease with multifocal areas of mild atherosclerotic narrowing of each common femoral artery, superficial femoral artery with moderate degrees of narrowing at each superficial femoral artery with extensive below the knee atherosclerotic vascular calcifications, occluded graft extending from the left popliteal artery to the level of the foot and into the arch of the foot which was occluded. She also had multiple compression fractures involving the lumbar vertebral bodies noted. HOSPITAL COURSE: The patient was admitted. She was seen in consultation by Infectious Disease and Vascular Surgery. Ultimately, it was felt that the patient's lower extremity gangrene and necrosis would not heal given her failed procedure and extensive atherosclerotic peripheral vascular disease. Therefore, she underwent an [id number] amputation on the left lower extremity on 08/28/2019. She subsequently did well physically and her mental status did improve. She did at one point make a comment that she was bothered by the fact that she had to have the amputation, was worried about her functional status and that she might better off simply not existing. Therefore, she was placed with a sitter and had [facility] evaluate her who felt she was not suicidal, but was certainly having some adjustment issues with the surgery. Once the patient's white count started to decline, her antibiotics were discontinued by Dr. Welsh and it was felt she would benefit from rehab. She was evaluated by Inpatient Rehab and accepted in transfer to their service once she was cleared by [facility]. Also of note, the patient's anemia persisted without significant worsening. She required no blood products. However, initially her Xarelto, Plavix and aspirin were held perioperatively. Her hemoglobin remained adequate and these were ultimately resumed at the time of discharge. DISCHARGE PHYSICAL EXAMINATION: VITAL SIGNS: On the day of discharge, temperature is 99.1, pulse 99, BP 165/90. She is awake and alert. HEART: Regular rate and rhythm. LUNGS: Clear bilaterally. ABDOMEN: Benign. EXTREMITIES: Left lower extremity stump is in dress with a postoperative wrap. Other extremity is warm and dry without edema. DISPOSITION: She is discharged to [facility]. ACTIVITY: As tolerated. She will be on a heart healthy diet. She will have PT and OT. DISCHARGE MEDICATIONS: Will include 1. Dulcolax 10 mg p.r.n. 2. DuoNebs p.r.n. 3. Remeron 15 mg at bedtime. 4. Senokot two p.o. b.i.d. p.r.n. constipation. 5. Tramadol 50 mg q.6 hours p.r.n. pain. 6. She will continue with. a. Singulair 10 mg at bedtime. b. Cozaar 100 mg p.o. daily. c. Albuterol nebs p.r.n. d. Symbicort 160/4.5 two inhalations b.i.d. e. Albuterol HFA p.r.n. f. Trilogy Ellipta one inhalation daily. g. Ventolin inhaler p.r.n. h. Guaifenesin 1200 mg b.i.d. i. Hydrocodone 5325 one q.6 p.r.n. pain. j. Alprazolam 0.25 mg at bedtime. k. Silvadene cream. Apply as needed. l. Seroquel 25 mg t.i.d. as needed. m. Plavix 75 mg daily. n. Coreg 12.5 mg b.i.d. o. Amlodipine 5 mg daily. p. Tylenol p.r.n. q. Xarelto 2.5 mg b.i.d. with meals. r. Prozac 40 mg daily. FOLLOWUP: She is to follow up with Dr. Welsh, Dr. Moises Ford, Dr. Michele Ford and further care will be per the rehab team. Total time in discharge activities was 37 minutes. Job ID: [id number]
== END 2019-09-01 14:39 | DRG 239 ==
LOC: ERS 15:27 → T4-A 18:00
PROVIDERS: ADMIT Internal Medicine; ATTEND Internal Medicine
PROC: 0Y6D0Z3 Detachment at Left Upper Leg, Low, Open Approach (ICD-10-PCS; principal; 2019-08-28)
DX: I96 Gangrene, not elsewhere classified (principal); G93.41 Metabolic encephalopathy; M86.8X7 Other osteomyelitis, ankle and foot; T82.858A Stenosis of other vascular prosthetic devices, implants and grafts, initial encounter; M48.50XA Collapsed vertebra, not elsewhere classified, site unspecified, initial encounter for fracture; I11.0 Hypertensive heart disease with heart failure; I50.9 Heart failure, unspecified; E78.5 Hyperlipidemia, unspecified; Z87.891 Personal history of nicotine dependence; Z90.710 Acquired absence of both cervix and uterus; Z98.51 Tubal ligation status; D72.829 Elevated white blood cell count, unspecified; D64.9 Anemia, unspecified; F32.9 Major depressive disorder, single episode, unspecified; R41.0 Disorientation, unspecified; E87.6 Hypokalemia; F43.20 Adjustment disorder, unspecified; N83.209 Unspecified ovarian cyst, unspecified side
CPT/HCPCS: 36415; 70450; 71045; 75635; 80048; 80053; 80202; 80307; 81003; 81015; 82274; 82330; 82607; 82746; 82803; 83605; 83880; 84443; 84484; 85007; 85014; 85018; 85025; 85027; 85610; 85652; 85730; 86140; 87040; 88307; 88311; 93005; 94640; 94760; 96374; 96375; J0131; J0670; J0692; J1100; J2060; J2250; J2405; J2543; J2704; J2930; J3010; J3370; J3490; J7050; J7620; Q9967

== ENCOUNTER 2019-09-30 09:47 | Outpatient (CLI) | payer MEDICARE ==
--- NOTE | 2019-09-30 11:20 | RAD ---
CHEST TWO VIEWS: HISTORY: Dyspnea. COMPARISON: 08/24/2019 FINDINGS: Atherosclerosis of the ascending elongation of the aorta. Upper normal cardiac silhouette. Pulmonary vessels and hilum are normal. Costophrenic angles are clear. Hyperinflation with chronic changes. No masses or consolidation. No pneumothorax. chronic compression fractures with vertebroplasty change. IMPRESSION: 1. Hyperinflation. Chronic changes. 2. Atherosclerosis. POS: CET
== END 2019-09-30 09:48 | disposition home or self-care (01) ==
LOC: RAD 09:47
PROVIDERS: ATTEND Internal Medicine Critical Care Medicine
DX: R06.00 Dyspnea, unspecified (principal); I70.90 Unspecified atherosclerosis
CPT/HCPCS: 71046

== ENCOUNTER 2019-11-27 12:48 | Outpatient (CLI) | payer MEDICARE ==
--- NOTE | 2019-11-27 13:11 | RAD ---
EXAM: Chest 2 views: HISTORY: Dyspnea COMPARISON: 09/30/2019 FINDINGS: There is a normal-sized cardiomediastinal silhouette. Scarring is seen in the mid left lung. There is no evidence of consolidation, mass, or pleural effusion. Osteopenia is seen. There are multiple wedge compression fractures. Vertebroplasty cement is seen at multiple levels in the spine. IMPRESSION: No evidence of acute cardiopulmonary disease
== END 2019-11-27 12:49 | disposition home or self-care (01) ==
LOC: RAD 12:48
PROVIDERS: ATTEND Internal Medicine Critical Care Medicine
DX: R06.00 Dyspnea, unspecified (principal)
CPT/HCPCS: 71046

== ENCOUNTER 2022-03-09 10:09 | Outpatient (CLI) | payer MEDICARE | END 2022-03-09 10:10 | disposition home or self-care (01) | LOC: RAD 10:09 | PROVIDERS: ATTEND Internal Medicine Critical Care Medicine | DX: R06.00 Dyspnea, unspecified (principal) | CPT/HCPCS: 71046 ==

== ENCOUNTER 2022-04-05 10:29 | Outpatient (CLI) | payer MEDICARE | END 2022-04-05 10:30 | disposition home or self-care (01) | LOC: BICCT 10:29 | PROVIDERS: ATTEND Otolaryngology Plastic Surgery within the Head & Neck | DX: H90.3 Sensorineural hearing loss, bilateral (principal); H61.891 Other specified disorders of right external ear | CPT/HCPCS: 70480 ==

== ENCOUNTER 2022-12-07 10:53 | Emergency (ER) | payer MEDICARE ==
[2022-12-07] MEDS ORDERED: HYDROcodone/Acetaminophen 10/325 mg Tablet ONE (11:57)
[2022-12-07] MEDS ORDERED: Cyclobenzaprine 10 MG TAB ONE (12:28)
== END 2022-12-07 12:11 | disposition home or self-care (01) ==
LOC: ERS 10:53
DX: S22.32XA Fracture of one rib, left side, initial encounter for closed fracture (principal); E78.5 Hyperlipidemia, unspecified; I10 Essential (primary) hypertension; J44.9 Chronic obstructive pulmonary disease, unspecified; W18.30XA Fall on same level, unspecified, initial encounter; Y92.009 Unspecified place in unspecified non-institutional (private) residence as the place of occurrence of the external cause; Z87.891 Personal history of nicotine dependence
CPT/HCPCS: 71045

== ENCOUNTER 2023-03-29 11:43 | Outpatient (CLI) | payer MEDICARE ==
[2023-03-29 12:40] LABS: Hemoglobin 11.3 g/dL (12.0-15.5); Mean Corpuscular HGB CONC 32.8 g/dL (32.0-36.0); Mean Corpuscular Hemoglobin 30.5 pg (27.0-33.0); Mean Platelet Volume 8.6 fl (7.4-10.4); Platelet Count 312 10x3/uL (150-450); RBC Distribution Width 12.6 % (11.5-14.5); Red Blood Cell (RBC) Count 3.71 10x6/uL (3.90-5.03); White Blood Cell (WBC) Count 14.8 10x3/uL (3.5-10.5)
[2023-03-29 12:47] LABS: Anion Gap 12 mmol/L (10-20); BUN (Urea Nitrogen) 26 mg/dL (9.8-20.1); Calc. Creatinine Clearance 0 mL/min (70-130); Calcium 9.7 mg/dL (7.8-10.44); Carbon Dioxide 24 mmol/L (23-31); Chloride 108 mmol/L (98-107); Estimated GFR 64; Glucose 133 mg/dL (83-110); Potassium 3.7 mmol/L (3.5-5.1); Sodium 140 mmol/L (136-145)
== END 2023-03-29 11:44 | disposition home or self-care (01) ==
LOC: LABBT 11:43
PROVIDERS: ATTEND Thoracic Surgery (Cardiothoracic Vascular Surgery)
DX: Z01.812 Encounter for preprocedural laboratory examination (principal); I73.9 Peripheral vascular disease, unspecified
CPT/HCPCS: 80048; 85027

== ENCOUNTER 2023-03-30 06:03 | Day surgery (SDC) | payer MEDICARE ==
[2023-03-30] MEDS ORDERED: Heparin 10,000 UNITS/ 10 ML VIAL ONE (06:22)
[2023-03-30] MEDS ORDERED: Lidocaine 1% (PF) 30 ML VIAL ONE (06:22)
[2023-03-30] MEDS ORDERED: fentaNYL 50 mcg/mL 1 mL Vial ONE ×3 (06:23→08:04)
[2023-03-30] MEDS ORDERED: Midazolam HCl 2 mg/2 ml Vial ONE (06:23)
[2023-03-30] MEDS ORDERED: Iopamidol 370 76% 100 ML VIAL ONE (15:18)
== END 2023-03-30 12:50 | disposition home or self-care (01) ==
LOC: SDC 06:03
PROVIDERS: ATTEND Thoracic Surgery (Cardiothoracic Vascular Surgery)
DX: I73.9 Peripheral vascular disease, unspecified (principal); J44.9 Chronic obstructive pulmonary disease, unspecified; I10 Essential (primary) hypertension; Z88.6 Allergy status to analgesic agent
CPT/HCPCS: 36247; 75710; C1769; J3010; 36246; 75736; 75774; J1644; J2001; J2250; Q9967

== ENCOUNTER 2023-11-21 07:54 | Outpatient (CLI) | payer MEDICARE | END 2023-11-21 07:55 | disposition home or self-care (01) | LOC: RAD 07:54 | PROVIDERS: ATTEND Internal Medicine Critical Care Medicine | DX: R06.00 Dyspnea, unspecified (principal) | CPT/HCPCS: 71046 ==

== ENCOUNTER 2025-09-17 19:59 | Emergency (ER) | payer MEDICARE ==
[2025-09-17] MEDS ORDERED: Acetaminophen 500 MG TAB ONE (20:40)
[2025-09-17 20:42] LABS: #Basophils 0.03 10x3/uL (0.0-0.2); #Eosinophils Less than 0.03 10x3/uL (0.0-0.7); #Monocytes 0.66 10x3/uL (0.11-0.59); #Neutrophils 8.90 10x3/uL (1.40-6.50); %Basophils 0.3 % (0.0-1.0); %Eosinophils 0.2 % (0.0-10.0); %Lymphocytes 17.4 % (21.0-51.0); %Monocytes 5.6 % (0.0-10.0); %Neutrophils 75.3 % (42.0-75.0); Hematocrit 39.6 % (36.0-47.0); Hemoglobin 13.3 g/dL (12.0-16.0); Mean Corpuscular Hemoglobin 30.2 pg (27.0-31.0); Mean Corpuscular Volume 89.8 fL (78.0-98.0); Platelet Count 306 10x3/uL (130-400); Red Blood Cell (RBC) Count 4.41 mill/uL (4.20-5.40); White Blood Cell (WBC) Count 11.81 10x3/uL (4.8-10.8)
[2025-09-17 21:14] LABS: ALT (SGPT) 10 U/L (Less than 34); AST (SGOT) 16 U/L (11-34); Albumin 3.4 g/dL (3.1-4.5); Alkaline Phosphatase 88 U/L (40-110); Anion Gap 16 mmol/L (10-20); BUN (Urea Nitrogen) 19 mg/dL (9.8-20.1); Bilirubin, Total 0.4 mg/dL (0.3-1.2); Calc. Creatinine Clearance 0 mL/min (70-130); Calcium 9.8 mg/dL (7.8-10.44); Carbon Dioxide 20 mmol/L (23-31); Chloride 109 mmol/L (98-107); Globulin 2.9 g/dL (2.4-3.5); Glucose 203 mg/dL (83-110); Potassium 4.4 mmol/L (3.5-5.1); Sodium 141 mmol/L (136-145)
== END 2025-09-17 21:59 | disposition home or self-care (01) ==
LOC: ERS 19:59
DX: T21.22XA Burn of second degree of abdominal wall, initial encounter (principal); T24.212A Burn of second degree of left thigh, initial encounter; T31.0 Burns involving less than 10% of body surface; I10 Essential (primary) hypertension; I25.10 Atherosclerotic heart disease of native coronary artery without angina pectoris; J44.9 Chronic obstructive pulmonary disease, unspecified; Z23 Encounter for immunization; Z87.891 Personal history of nicotine dependence; X12.XXXA Contact with other hot fluids, initial encounter
CPT/HCPCS: 80053; 85025; 90471; 90715; 96374